=== PATIENT | female | born 1945 | race Caucasian/White ===

== ENCOUNTER 2018-03-06 15:17 | Outpatient (CLI) | payer MEDICARE, SELFPAY ==
--- NOTE | 2018-03-06 13:36 | DI.RAD_ITS ---
SYMPTOMS/DIAGNOSIS: ACUTE LOW BACK PAIN, M54.5 LUMBOSACRAL SPINE: A mild levorotoscoliosis is demonstrated. The vertebral bodies are intact. Disc narrowing is identified at T 10 - 11, T 11 - 12, T 12 - L 1, L 1 - 2 and L 5 where a narrowed vacuum disc is evident. There is a minimal anterior listhesis of L 4 on L 5. Severe degenerative facet joint changes are noted. There is no evidence of spondylosis or spondylolisthesis. The pedicle, spinous and transverse processes as visualized appear intact. The sacrum and sacroiliac joints are unremarkable. SUMMARY: Findings consistent with degenerative disc disease and DJD. There is no evidence of a fracture. Incidental note is made of a right hip prosthesis in good position.
== END 2018-03-06 15:37 ==
PROVIDERS: PCP Neuromusculoskeletal Medicine & OMM; Visit Provider Neuromusculoskeletal Medicine & OMM
DX: M54.5 Low back pain (principal); M51.35 Other intervertebral disc degeneration, thoracolumbar region; M47.815 Spondylosis without myelopathy or radiculopathy, thoracolumbar region
CPT/HCPCS: 72110

== ENCOUNTER 2018-06-05 01:19 | Outpatient (CLI) | payer MEDICARE, SELFPAY ==
--- NOTE | 2018-06-05 13:20 | DI.RAD_ITS ---
SYMPTOM/DIAGNOSIS: ASYMPTOMATIC MENOPAUSAL STATE Z78.0, SCREENING FOR OSTEOPOROSIS Z213.820 DEXA SCAN: A 06/05/2018 Dexa scan is duly recorded according to the usual protocol. For the left forearm a T-score of -2.4 and a Z-score of -0.1 are consistent with osteoporosis and a high fracture risk. The values today represent no change in bony mineralization when compared with te prior study of 09/22/2015. For the left hip a T-score of -2.5 and a Z-score of -0.8 are consistent with osteoporosis and a high fracture risk. These values represent a -8.1% decrease in mineralization when compared with the previous study of 09/22/2015. For the lumbar spine a t-score of -0.4 and a Z-score of 9 +1 are within the normal range. These values represent a -4.6% interval decrease in mineralization when compared with the 09/22/2015 exam. The scanogram was reviewed and reveals degenerative changes and is otherwise unremarkable.
== END 2018-06-05 01:39 ==
PROVIDERS: PCP Neuromusculoskeletal Medicine & OMM; Visit Provider Neuromusculoskeletal Medicine & OMM
DX: M81.0 Age-related osteoporosis without current pathological fracture (principal); Z78.0 Asymptomatic menopausal state
CPT/HCPCS: 77080

== ENCOUNTER 2018-10-17 11:33 | Outpatient (CLI) | payer MEDICARE, SELFPAY ==
[2018-10-17 13:21] LABS: ALT 31 U/L (12-78); AST 28 U/L (15-37); Albumin 3.6 g/dL (3.4-5.0); Alkaline Phosphatase 104 U/L (46-116); Anion Gap 6.4 mmol/L (3-11); BUN 15 mg/dL (7-18); Bilirubin, Total 0.4 mg/dL (0.2-1.0); CO2 29.6 mmol/L (21.0-32.0); CREATININE 0.84 mg/dL (0.55-1.02); Calcium 8.6 mg/dL (8.5-10.1); Chloride 107 mmol/L (98-107); Cholesterol 145 mg/dL (50-200); Glucose 86 mg/dL (70-100); HDL Cholesterol 44 mg/dL (40-60); LDL CHOLESTEROL 76 mg/dL (<100); Potassium 4.4 mmol/L (3.5-5.1); Sodium 143 mmol/L (136-145); Total Protein 6.8 g/dL (6.4-8.2); Triglyceride 104 mg/dL (30-150)
== END 2018-10-17 11:53 ==
PROVIDERS: PCP Neuromusculoskeletal Medicine & OMM; Visit Provider Neuromusculoskeletal Medicine & OMM
DX: E78.5 Hyperlipidemia, unspecified (principal)
CPT/HCPCS: 36415; 80053; 80061; 83721

== ENCOUNTER 2018-10-27 10:38 | Emergency (ER) | payer MEDICARE, SELFPAY ==
[2018-10-27 10:44] VITALS: BP 124/67; PULSE 82; RESP 16; TEMP 36.5; O2SAT 96
--- NOTE | 2018-10-27 11:08 | DI.RAD_ITS ---
SYMPTOMS/DIAGNOSIS: PAIN TO PROXIMAL INTERPHALANGEAL JOINT AND DISTAL INTERPHALANGEAL JOINT S/P TRAUMA LEFT RING FINGER: There is soft tissue swelling around the proximal interphalangeal joint. No fracture or foreign body is identified. IMPRESSION: Soft tissue swelling.
[2018-10-27] MEDS: Acetaminophen 325 MG TAB 650 MG PO (11:10)
--- NOTE | 2018-10-27 12:10 | ED.GENADUL_ITS ---
Discharge Plan Disposition Patient Disposition: HOME Discharge Details Chief Complaint: Orthopedic Primary Care Provider: Jerrod Aly ED Provider: Marcelino Jerez Home Meds and New Rx's Prescriptions: Continued multivitamin [Daily Multi-Vitamin] 1 EACH tablet 1 tab PO DAILY RF: 0 fluoxetine 40 MG capsule 40 mg PO DAILY RF: 0 buspirone 5 MG tablet 5 mg PO BID RF: 0 bupropion HCl [Wellbutrin SR] 100 MG tablet extended release 12 hr 150 mg PO DAILY RF: 0 calcium carbonate-vitamin D3 [Calcium 500 + D] 1 EACH tablet 1 ea PO DAILY RF: 0 aspirin [Aspir-Low] 81 MG tablet,delayed release (DR/EC) 81 mg PO DAILY RF: 0 simvastatin 20 MG tablet 20 mg PO QPM RF: 0 albuterol sulfate [Proventil HFA] 200 PUFF HFA aerosol inhaler 2 gm Inhalation DIRECTED RF: 0 valacyclovir 1,000 MG tablet 1,000 mg PO TID Qty: 21 RF: 0 Discharge Data Discharge Date/Time-TO BE ENTERED AT DEPARTURE: 10/27/18 12:36 Medical Decision Making Hyperextension of left ring finger 1 day ago with significant swelling and ecchymosis. Patient has ring intact but causing significant swelling to the proximal phalanx. Patient agreed for ring removal and Dr. Adame's Montez assisted in removing ring with ring cutter. Finger was assessed and sensation was intact, patient did have flexion and extension of the digit with some difficulty fully flexing the digit but tendons do seem intact. Given significant swelling and ecchymosis plan to do radiological imaging to rule out acute fracture. Pending results patient given acetaminophen After review of imaging that shows no signs of acute fracture but pending radiologist interpretation patient was placed in a foam metal splint and instructed to use this over the next week and advance activity as tolerated by pain and if not improving to call orthopedist. After discussion of diagnosis and plan of care patient has no further needs, questions, or concerns and states clear understanding to return to the emergency department for any worsening symptoms. HPI General Mode of arrival: ambulatory . Date/Time Provider Initiated Documentation: 10/27/18 10:52 . Limitations to Documentation: no limitations . Information obtained by: patient and RN notes reviewed . History of Present Illness 73 year old F presents to the emergency department with the chief complaint of Left ring finger injury, described as moderate, with intensity rated at 8. Quality is described as aching, and is localized to the left and upper extremity. Patient started experiencing this day(s) (1) and it has been constant. Movement worsens symptoms . Patient notes no other symptoms.. Patient did receive the following treatments prior to arrival, none Related Data Home Medications Medication Instructions Recorded Confirmed bupropion HCl [Wellbutrin SR] 150 mg PO DAILY 01/08/13 10/27/18 buspirone 5 mg PO BID 01/08/13 10/27/18 calcium carbonate-vitamin D3 1 ea PO DAILY 01/08/13 10/27/18 [Calcium 500 + D] fluoxetine 40 mg PO DAILY 01/08/13 10/27/18 multivitamin [Daily Multi-Vitamin] 1 tab PO DAILY 01/08/13 10/27/18 aspirin [Aspir-Low] 81 mg PO DAILY 11/11/14 10/27/18 simvastatin 20 mg PO QPM 11/11/14 10/27/18 albuterol sulfate [Proventil HFA] 2 gm INHALATION DIRECTED 05/27/16 10/27/18 valacyclovir 1,000 mg PO TID #21 tablet 05/27/16 10/27/18 Previous Rx's Medication Instructions Recorded valacyclovir 1,000 mg PO TID #21 tablet 05/27/16 Allergies Allergy/AdvReac Type Severity Reaction Status Date / Time Sulfa (Sulfonamide AdvReac Intermediate Dizziness/L Unverified 10/27/18 10:47 Antibiotics) ightheade erythromycin base AdvReac Mild dizziness Unverified 10/27/18 10:47 General Stated Complaint: Orthopedic MAI: 4 Review of Systems Musculoskeletal Reports as per HPI, Denies numbness and Denies tingling Integumentary/Breasts Denies rash, Denies sores and Denies wounds Neurologic Denies numbness and Denies tingling PFSH Surgical History Appendectomy section Social History Smoking/Tobacco Use Status: Former Tobacco Use Drug use: Never Do you feel safe in your relationship?: Yes Exam Const General: cooperative and no acute distress Orientation: alert, awake and oriented x3 Resp Effort & Inspection: normal respiratory effort and able to speak in complete sentences Cardio Rate: regular rate Rhythm: regular rhythm Extrem Left upper extremity: hand Details: abnormal to inspection, neuromotor exam normal, neurosensory exam normal, tendon exam normal, vascular exam Details: radial pulse present and normal capillary refill, swelling Location: of the 4th digit Location: at the proximal phalanx and at the middle phalanx and ecchymosis Location: of the 4th digit; no abrasions and no crepitus Course Vital Signs Temperature 36.5 C 10/27/18 10:44 Pulse 82 10/27/18 10:44 Respiratory Rate 16 10/27/18 10:44 Blood Pressure 124/67 10/27/18 10:44 Pulse Oximetry 96 10/27/18 10:44 Temperature 36.5 C 10/27/18 10:44 Temperature Source Skin 10/27/18 10:44 Pulse 82 10/27/18 10:44 Respiratory Rate 16 10/27/18 10:44 Respiratory Effort Non-Labored 10/27/18 10:44 Blood Pressure 124/67 10/27/18 10:44 Blood Pressure Position Sitting 10/27/18 10:44 Pulse Oximetry 96 10/27/18 10:44 Oxygen Delivery Method Room Air 10/27/18 10:44 Oxygen Flow Rate 0 10/27/18 10:44 Pain Level 8 10/27/18 11:10
[2018-10-27 12:18] VITALS: BP 124/67; PULSE 82; RESP 16; TEMP 36.5; O2SAT 96
== END 2018-10-27 12:36 | disposition home or self-care (01) ==
PROVIDERS: Emergency Provider Nurse Practitioner Family; PCP Neuromusculoskeletal Medicine & OMM
DX: S63.635A Sprain of interphalangeal joint of left ring finger, initial encounter (principal); W22.8XXA Striking against or struck by other objects, initial encounter
CPT/HCPCS: 99283; 73140; 99282

== ENCOUNTER 2018-11-27 12:15 | Emergency (ER) | payer MEDICARE, SELFPAY ==
[2018-11-27 12:18] VITALS: BP 150/84; PULSE 77; RESP 16; TEMP 36.5; O2SAT 97
--- NOTE | 2018-11-27 12:18 | W.ED.GENAD ---
Discharge Plan Disposition Patient Disposition: HOME Condition: Fair Discharge Details Chief Complaint: FacialProb Clinical Impression: Facial abrasion, Contusion of face Primary Care Provider: Jerrod Aly ED Provider: Nhung Santos Home Meds and New Rx's Prescriptions: Continued fluoxetine 40 MG capsule 40 mg PO DAILY RF: 0 buspirone 5 MG tablet 5 mg PO BID RF: 0 bupropion HCl [Wellbutrin SR] 100 MG tablet extended release 12 hr 150 mg PO DAILY RF: 0 aspirin [Aspir-Low] 81 MG tablet,delayed release (DR/EC) 81 mg PO DAILY RF: 0 simvastatin 20 MG tablet 20 mg PO QPM RF: 0 albuterol sulfate [Proventil HFA] 200 PUFF HFA aerosol inhaler 2 gm Inhalation DIRECTED RF: 0 Discharge Instructions Instructions: Head Injury (ED), Abrasion (ED) Additional Instructions: Encourage hydration. Keep wounds clean and dry. May wash as you typically do with running water and soap. Monitor for signs of infection including redness, warmth, drainage, increased pain, fever/chills. If these or other new/worsening symptoms arise please seek care urgently once again. Imaging was reassuring today with no evidence of fracture. Please follow-up with primary care reevaluation next week. Referrals: Jerrod Aly [Primary Care Provider] - Medical Decision Making Patient is a 73 year old female presenting today for evaluation after trauma. States that yesterday she tripped over her dog leash and fell forward striking her face on dirt road. Also suffered abrasions to bilateral knees and left wrist. She denies LOC, no FOREMAN. Denies neck pain, SOB, N/V/D, no incontinence or change in bowel/bladder habits. Primary concern is pain in her nose. Last tetanus was 3 years ago. On exam, she has abrasion down nose. Patient has deviated septum but she reports that this is typical for her and unchanged. She has no current epistaxis. No nasal polyps. No palpable skull fractures. No wilkerson sign. Patient over the spine, no palpable step-off. Patient has good range of motion. No pain with a few chest wall compression. Abdomen is benign. She is abrasions to bilateral knees and small abrasion to the left wrist. All of which appear to be healing well without signs of infection. Small scabbed over since yesterday. Plan to obtain imaging of the patient's head and face to evaluate for any possible fracture. After exam, patient reported that she had some discomfort in the chest yesterday after the fall states that she landed on her hands under her chest. However, she does not have any discomfort with a pair of lateral chest wall compression. Will screen with a chest X CT of the patient's head and face as well as the chest x-ray reviewed by radiologist. They report that the imaging is negative. Discussed these findings with the patient. Advised contusions and abrasions. Encourage hydration. We discussed signs symptoms of infection of the abrasions and when she should seek care urgently once again. Also discussed symptoms of head injury. Advise follow-up with primary care next week. All of her questions and concerns were addressed, they are in agreement with this plan. HPI General Mode of arrival: ambulatory. Date/Time Provider Initiated Documentation: 11/27/18 12:17. Limitations to Documentation: no limitations. Information obtained by: patient and RN notes reviewed. History of Present Illness 73 year old F presents to the emergency department with the chief complaint of facial trauma, described as moderate, with intensity rated at 7. Quality is described as aching, and is localized to the face. Patient reports no radiation. Patient started experiencing this day(s) (1) and it has been constant. No relieving factors improve symptom(s), No exacerbating factors reported . Patient notes no other symptoms.. Patient did receive the following treatments prior to arrival, none Related Data Home Medications Medication Instructions Recorded Confirmed bupropion HCl [Wellbutrin SR] 150 mg PO DAILY 01/08/13 11/27/18 buspirone 5 mg PO BID 01/08/13 11/27/18 fluoxetine 40 mg PO DAILY 01/08/13 11/27/18 aspirin [Aspir-Low] 81 mg PO DAILY 11/11/14 11/27/18 simvastatin 20 mg PO QPM 11/11/14 11/27/18 albuterol sulfate [Proventil HFA] 2 gm INHALATION DIRECTED 05/27/16 11/27/18 Allergies Allergy/AdvReac Type Severity Reaction Status Date / Time Sulfa (Sulfonamide AdvReac Intermediate Dizziness/L Unverified 11/27/18 12:22 Antibiotics) ightheade erythromycin base AdvReac Mild dizziness Unverified 11/27/18 12:22 General MAI: 4 Review of Systems Constitutional Reports as per HPI, Denies chills, Denies fatigue, Denies fever(s), Denies headache(s) and Denies weakness Eyes Reports as per HPI, Denies blurry vision, Denies change in vision and Denies loss of vision ENT Denies abnormal hearing, Denies vertigo, Denies dizziness, Denies otalgia, Denies headache(s), Denies lip swelling, Denies nasal obstruction, Reports nasal trauma, Denies neck pain and Denies throat swelling Cardiovascular Reports as per HPI, Denies chest pain and Denies dyspnea Respiratory Reports as per HPI, Denies cough, Denies pain on inspiration, Denies pain with cough and Denies dyspnea Gastrointestinal Reports as per HPI, Denies abdominal pain, Denies nausea and Denies vomiting Genitourinary Reports as per HPI and Denies urinary incontinence Musculoskeletal Reports as per HPI and Denies neck pain Integumentary/Breasts Reports as per HPI and Reports wounds Neurologic Reports as per HPI, Denies abnormal hearing, Denies abnormal movements, Denies abnormal speech, Denies vertigo, Denies dizziness, Denies headache(s), Denies lack of coordination, Denies focal weakness, Denies loss of vision, Denies seizure-like activity, Denies paresthesias and Denies weakness Endocrine Denies fatigue Allergic/Immunologic Denies lip swelling and Denies throat swelling [facility] Surgical History Appendectomy section Social History Smoking/Tobacco Use Status: Former Tobacco Use Alcohol Intake: former Drug use: Never Do you feel safe in your relationship?: Yes Exam Const General: cooperative, healthy appearing, comfortable, no acute distress, well developed and well groomed Nutritional Appearance: average body habitus and well nourished Orientation: alert, awake and oriented x3 HENMT Head: normal to inspection, no palpable skull fracture, normocephalic and atraumatic Ears: hearing grossly normal bilaterally, external ears normal and TM's normal bilaterally General nose exam: no nasal polyps, nasal mucous membranes and turbinates normal, abnormal septum (deviated septum, patient reports this is known and chronic), no nasal discharge, no epistaxis, external nose abnormal nasal abrasion, no foreign body in nares and no nasal polyps Face and sinus: face symmetric, no abrasions, no crepitus, no ecchymosis, no erythema, no edema, no fluctuance, no lacerations, no maxillary instability and tenderness bilaterally periorbital, mandible, maxilla and chin (ecchymosis over chin) Mouth: oral mucosae normal, lip normal and tongue normal Throat: posterior oropharynx normal Eyes General: appearance normal, both eyes and all related structures Visual Mcmanus: normal visual mcmanus by confrontation Alignment and Position: alignment normal Periorbital: periorbital findings normal Eyelids: eyelids normal Conjunctivae: conjunctivae normal Pupils: PERRL EOM: EOM intact bilaterally Neck Neck: normal visual inspection, full ROM, no lymphadenopathy, no meningeal signs, trachea midline and supple Chest Chest: normal inspection of the chest, normal palpation of entire chest wall, no crepitus and no localized rib tenderness Resp Effort & Inspection: normal respiratory effort, able to speak in complete sentences and no respiratory distress Auscultation: clear to auscultation bilaterally, no rales, no rhonchi and no wheezes Cardio Rate: regular rate Rhythm: regular rhythm Heart Sounds: S1 normal and S2 normal GI Inspection: normal to inspection, no abdominal wall ecchymosis, no edema and non-distended Palpation: soft, no hepatosplenomegaly, not firm, no guarding, no pulsatile masses, not rigid and nontender Auscultation: normal bowel sounds Back/Spine/Pelvis Back: no CVA tenderness Cervical Spine: normal cervical lordosis and cervical ROM normal Thoracic/Lumbar Spine: thoracic and lumbar spine normal to inspection, thoraco-lumbar ROM normal, No thoraco-lumbar ROM limited, No thoraco-lumbar spasm and No thoracic spinal tenderness Pelvis: no pain with anterior-posterior compression and no pain with lateral compression Skin Trauma: abrasion (abrasion to nose, appears to be healing well) Neuro General: alert, awake, oriented x3, gait normal, tone normal and moves all extremities Cranial Nerves: CN's II-XI intact bilaterally Cognition: normal cognition Speech: speech normal Gait: normal gait Motor: muscle tone normal throughout and strength 5/5 throughout Sensory Exam: no sensory deficits noted (no saddle paresthesias) Extrem General: normal to inspection, full ROM, normal capillary refill, no pedal edema and no calf tenderness Psych Appearance: grossly normal and well kempt Mental Status: mental status grossly normal Speech and Movement: speech and movement normal
--- NOTE | 2018-11-27 12:37 | DI.RAD_ITS ---
SYMPTOM/DIAGNOSIS: TRAUMA YESTERDAY, PAIN AFTER FALL PA AND LATERAL CHEST: The heart is normal in size. The lungs are clear. The mediastinal structures and pleura appear intact. CONCLUSION: Normal chest.
--- NOTE | 2018-11-27 12:37 | DI.CT_ITS ---
SYMPTOM/DIAGNOSIS: TRAUMA YESTERDAY, PAIN IN JAW AND NOSE NONCONTRAST HEAD CT: Atrophic changes consistent with age are demonstrated. There is no evidence of an intra/extra-axial hemorrhage. Small regions of diminished absorption involving the frontoparietal white matter bilaterally are consistent with small vessel disease. The ventricles are normal. There is no evidence of a skull fracture. The paranasal sinuses are intact. There is no evidence of a mastoid effusion. No soft tissue abnormality is identified. SUMMARY: There is no evidence of an acute intracranial process. FACIAL CT: The noncontrast enhanced examination reveals no evidence of a facial bone fracture. No orbital fracture is identified. Aside from a small retention cyst in the right frontal sinus, the paranasal sinuses are intact. SUMMARY: No facial bone fracture is demonstrated.
--- NOTE | 2018-11-27 13:03 | ED.GENADUL_ITS ---
Discharge Plan Disposition Patient Disposition: HOME Condition: Fair Discharge Details Chief Complaint: FacialProb Clinical Impression: Facial abrasion, Contusion of face Primary Care Provider: Jerrod Aly ED Provider: Nhung Santos Home Meds and New Rx's Prescriptions: Continued fluoxetine 40 MG capsule 40 mg PO DAILY RF: 0 buspirone 5 MG tablet 5 mg PO BID RF: 0 bupropion HCl [Wellbutrin SR] 100 MG tablet extended release 12 hr 150 mg PO DAILY RF: 0 aspirin [Aspir-Low] 81 MG tablet,delayed release (DR/EC) 81 mg PO DAILY RF: 0 simvastatin 20 MG tablet 20 mg PO QPM RF: 0 albuterol sulfate [Proventil HFA] 200 PUFF HFA aerosol inhaler 2 gm Inhalation DIRECTED RF: 0 Discharge Instructions Instructions: Head Injury (ED), Abrasion (ED) Additional Instructions: Encourage hydration. Keep wounds clean and dry. May wash as you typically do with running water and soap. Monitor for signs of infection including redness, warmth, drainage, increased pain, fever/chills. If these or other new/worsening symptoms arise please seek care urgently once again. Imaging was reassuring today with no evidence of fracture. Please follow-up with primary care enrrique juarez next week. Referrals: Jerrod Aly [Primary Care Provider] - Medical Decision Making Patient is a 73 year old female presenting today for evaluation after trauma. States that yesterday she tripped over her dog leash and fell forward striking her face on dirt road. Also suffered abrasions to bilateral knees and left wrist. She denies LOC, no FOREMAN. Denies neck pain, SOB, N/V/D, no incontinence or change in bowel/bladder habits. Primary concern is pain in her nose. Last tetanus was 3 years ago. On exam, she has abrasion down nose. Patient has deviated septum but she reports that this is typical for her and unchanged. She has no current epistaxis. No nasal polyps. No palpable skull fractures. No wilkerson sign. Patient over the spine, no palpable step-off. Patient has good range of motion. No pain with a few chest wall compression. Abdomen is benign. She is abrasions to bilateral knees and small abrasion to the left wrist. All of which appear to be healing well without signs of infection. Small scabbed over since yesterday. Plan to obtain imaging of the patient's head and face to evaluate for any possible fracture. After exam, patient reported that she had some discomfort in the chest yesterday after the fall states that she landed on her hands under her chest. However, she does not have any discomfort with a pair of lateral chest wall compression. Will screen with a chest X CT of the patient's head and face as well as the chest x-ray reviewed by radiologist. They report that the imaging is negative. Discussed these findings with the patient. Advised contusions and abrasions. Encourage hydration. We discussed signs symptoms of infection of the abrasions and when she should seek care urgently once again. Also discussed symptoms of head injury. Advise follow-up with primary care next week. All of her questions and concerns were addressed, they are in agreement with this plan. HPI General Mode of arrival: ambulatory . Date/Time Provider Initiated Documentation: 11/27/18 12:17 . Limitations to Documentation: no limitations . Information obtained by: patient and RN notes reviewed . History of Present Illness 73 year old F presents to the emergency department with the chief complaint of facial trauma, described as moderate, with intensity rated at 7. Quality is described as aching, and is localized to the face. Patient reports no radiation. Patient started experiencing this day(s) (1) and it has been constant. No relieving factors improve symptom(s), No exacerbating factors reported . Patient notes no other symptoms.. Patient did receive the following treatments prior to arrival, none Related Data Home Medications Medication Instructions Recorded Confirmed bupropion HCl [Wellbutrin SR] 150 mg PO DAILY 01/08/13 11/27/18 buspirone 5 mg PO BID 01/08/13 11/27/18 fluoxetine 40 mg PO DAILY 01/08/13 11/27/18 aspirin [Aspir-Low] 81 mg PO DAILY 11/11/14 11/27/18 simvastatin 20 mg PO QPM 11/11/14 11/27/18 albuterol sulfate [Proventil HFA] 2 gm INHALATION DIRECTED 05/27/16 11/27/18 Allergies Allergy/AdvReac Type Severity Reaction Status Date / Time Sulfa (Sulfonamide AdvReac Intermediate Dizziness/L Unverified 11/27/18 12:22 Antibiotics) ightheade erythromycin base AdvReac Mild dizziness Unverified 06/13/19 12:22 General MAI: 4 Review of Systems Constitutional Reports as per HPI, Denies chills, Denies fatigue, Denies fever(s), Denies headache(s) and Denies weakness Eyes Reports as per HPI, Denies blurry vision, Denies change in vision and Denies loss of vision ENT Denies abnormal hearing, Denies vertigo, Denies dizziness, Denies otalgia, Denies headache(s), Denies lip swelling, Denies nasal obstruction, Reports nasal trauma, Denies neck pain and Denies throat swelling Cardiovascular Reports as per HPI, Denies chest pain and Denies dyspnea Respiratory Reports as per HPI, Denies cough, Denies pain on inspiration, Denies pain with cough and Denies dyspnea Gastrointestinal Reports as per HPI, Denies abdominal pain, Denies nausea and Denies vomiting Genitourinary Reports as per HPI and Denies urinary incontinence Musculoskeletal Reports as per HPI and Denies neck pain Integumentary/Breasts Reports as per HPI and Reports wounds Neurologic Reports as per HPI, Denies abnormal hearing, Denies abnormal movements, Denies abnormal speech, Denies vertigo, Denies dizziness, Denies headache(s), Denies lack of coordination, Denies focal weakness, Denies loss of vision, Denies seizure-like activity, Denies paresthesias and Denies weakness Endocrine Denies fatigue Allergic/Immunologic Denies lip swelling and Denies throat swelling [facility] Surgical History Appendectomy section Social History Smoking/Tobacco Use Status: Former Tobacco Use Alcohol Intake: former Drug use: Never Do you feel safe in your relationship?: Yes Exam Const General: cooperative, healthy appearing, comfortable, no acute distress, well developed and well groomed Nutritional Appearance: average body habitus and well nourished Orientation: alert, awake and oriented x3 HENMT Head: normal to inspection, no palpable skull fracture, normocephalic and atraumatic Ears: hearing grossly normal bilaterally, external ears normal and TM's normal bilaterally General nose exam: no nasal polyps, nasal mucous membranes and turbinates normal, abnormal septum (deviated septum, patient reports this is known and chronic), no nasal discharge, no epistaxis, external nose abnormal nasal abrasion, no foreign body in nares and no nasal polyps Face and sinus: face symmetric, no abrasions, no crepitus, no ecchymosis, no erythema, no edema, no fluctuance, no lacerations, no maxillary instability and tenderness bilaterally periorbital, mandible, maxilla and chin (ecchymosis over chin) Mouth: oral mucosae normal, lip normal and tongue normal Throat: posterior oropharynx normal Eyes General: appearance normal, both eyes and all related structures Visual Mcmanus: normal visual mcmanus by confrontation Alignment and Position: alignment normal Periorbital: periorbital findings normal Eyelids: eyelids normal Conjunctivae: conjunctivae normal Pupils: PERRL EOM: EOM intact bilaterally Neck Neck: normal visual inspection, full ROM, no lymphadenopathy, no meningeal signs, trachea midline and supple Chest Chest: normal inspection of the chest, normal palpation of entire chest wall, no crepitus and no localized rib tenderness Resp Effort & Inspection: normal respiratory effort, able to speak in complete sentences and no respiratory distress Auscultation: clear to auscultation bilaterally, no rales, no rhonchi and no wheezes Cardio Rate: regular rate Rhythm: regular rhythm Heart Sounds: S1 normal and S2 normal GI Inspection: normal to inspection, no abdominal wall ecchymosis, no edema and non-distended Palpation: soft, no hepatosplenomegaly, not firm, no guarding, no pulsatile masses, not rigid and nontender Auscultation: normal bowel sounds Back/Spine/Pelvis Back: no CVA tenderness Cervical Spine: normal cervical lordosis and cervical ROM normal Thoracic/Lumbar Spine: thoracic and lumbar spine normal to inspection, thoraco- lumbar ROM normal, No thoraco-lumbar ROM limited, No thoraco-lumbar spasm and No thoracic spinal tenderness Pelvis: no pain with anterior-posterior compression and no pain with lateral compression Skin Trauma: abrasion (abrasion to nose, appears to be healing well) Neuro General: alert, awake, oriented x3, gait normal, tone normal and moves all extremities Cranial Nerves: CN's II-XI intact bilaterally Cognition: normal cognition Speech: speech normal Gait: normal gait Motor: muscle tone normal throughout and strength 5/5 throughout Sensory Exam: no sensory deficits noted (no saddle paresthesias) Extrem General: normal to inspection, full ROM, normal capillary refill, no pedal edema and no calf tenderness Psych Appearance: grossly normal and well kempt Mental Status: mental status grossly normal Speech and Movement: speech and movement normal
== END 2018-11-27 13:33 | disposition home or self-care (01) ==
PROVIDERS: Emergency Provider Physician Assistant; PCP Neuromusculoskeletal Medicine & OMM
DX: S00.81XA Abrasion of other part of head, initial encounter (principal); S00.83XA Contusion of other part of head, initial encounter; S60.812A Abrasion of left wrist, initial encounter; S80.212A Abrasion, left knee, initial encounter; S80.211A Abrasion, right knee, initial encounter; R07.9 Chest pain, unspecified; Z79.82 Long term (current) use of aspirin; W18.31XA Fall on same level due to stepping on an object, initial encounter; W54.8XXA Other contact with dog, initial encounter
CPT/HCPCS: 99284; 70450; 70486; 71046

== ENCOUNTER → 2019-11-12 10:34 | Outpatient (BNVA) | payer MEDICARE, SELFPAY | PROVIDERS: PCP Neuromusculoskeletal Medicine & OMM; Referring Provider Neuromusculoskeletal Medicine & OMM; Visit Provider Student in an Organized Health Care Education/Training Program | DX: G56.01 Carpal tunnel syndrome, right upper limb (principal); G56.02 Carpal tunnel syndrome, left upper limb; J44.9 Chronic obstructive pulmonary disease, unspecified; Z87.891 Personal history of nicotine dependence | CPT/HCPCS: 99203; 99214 ==

== ENCOUNTER 2019-11-30 07:55 | Outpatient (CLI) | payer MEDICARE, SELFPAY ==
[2019-12-01 16:14] LABS: COVID-19 RT-PCR UVMMC Result Negative (Negative)
== END 2019-11-30 08:15 ==
PROVIDERS: PCP Neuromusculoskeletal Medicine & OMM; Visit Provider Student in an Organized Health Care Education/Training Program
DX: Z11.59 Encounter for screening for other viral diseases (principal); Z01.818 Encounter for other preprocedural examination
CPT/HCPCS: U0003

== ENCOUNTER 2019-12-02 06:42 | Day surgery (SDC) | payer MEDICARE, SELFPAY ==
[2019-12-02 06:54] VITALS: BP 116/86; PULSE 74; RESP 20; TEMP 36.4; O2SAT 98
[2019-12-02] MEDS: Lactated Ringers 1,000 ML 80 ML IV (07:15)
[2019-12-02] MEDS: ceFAZolin 2 GM/50 ML BAG IVPB (07:29)
[2019-12-02] MEDS: Sodium Bicarbonate 50 MEQ/50 ML VIAL (07:41)
[2019-12-02 08:25] VITALS: BP 124/80; PULSE 71; RESP 20; TEMP 36.7; O2SAT 96
--- NOTE | 2019-12-02 10:09 | PDOC.DSDIS_ITS ---
Discharge Plan Disposition Patient Disposition: HOME Condition: Good Discharge Details Reason For Visit: Right Carpal Tunnel Syndrome Attending Provider: Leo Alex Primary Care Provider: Jerrod Aly Olmitz Meds and New Rx's Prescriptions: No Action fluoxetine 40 MG capsule 40 mg PO DAILY RF: 0 buspirone 5 MG tablet 30 mg PO BID RF: 0 bupropion HCl [Wellbutrin SR] 100 MG tablet extended release 12 hr 300 mg PO DAILY RF: 0 aspirin [Aspir-Low] 81 MG tablet,delayed release (DR/EC) 81 mg PO DAILY RF: 0 simvastatin 20 MG tablet 20 mg PO QPM RF: 0 acetaminophen [Tylenol Extra Strength] 500 mg Tablet 1,000 mg PO Q6H PRNRF: 0 albuterol sulfate [Proventil HFA] 200 PUFF HFA aerosol inhaler 2 gm Inhalation DIRECTED RF: 0 Discharge Instructions Stand Alone Forms: Abi Cassidy Tunnel Release, DSU Post op Instructions, Ene Hightower (DSU) Referrals: Leo Alex MD [ [facility] STAFF PHYSICIAN] - Activity:: Elevate Remove Dressings/Wound Care:: 72 hours Shower/Bathe:: 72 hours Diet:: As Tolerated Discharge Orders Discharge Orders: Discharge Order (Routine); Ordered 12/02/19 Ordered By: Leo Alex Discharge Data Discharge Date/Time-TO BE ENTERED AT DEPARTURE: 12/02/19 08:56 DS: Diagnosis Discharge Diagnosis (1) Carpal tunnel syndrome, right: Status: Acute
--- NOTE | 2019-12-02 10:10 | W.PM.OP ---
Date of service: 12/02/19 Time of Service: 07:45 Operative Note Operative Note DATE OF PROCEDURE: 12/02/19 PRE-OP DIAGNOSIS: Right Carpal Tunnel Syndrome POST-OP DIAGNOSIS: same PROCEDURE: Right Endoscopic Carpal Tunnel Release SURGEON: Leo Alex ANESTHESIA: GETGeorgina ESTIMATED BLOOD LOSS: 0 PATHOLOGY: none sent TOURNIQUET TIME: 3 COMPLICATIONS: None Patient was transported to: same day Patient's condition: stable Indications: I have seen Zoë in clinic for symptoms of carpal tunnel syndrome. The numbness, tingling, and pain limited function. Clinical exam findings with nerve conduction tests confirmed the diagnosis of carpal tunnel syndrome. Nonoperative measures such as bracing, time, activity modifications had been tried but disability and pain persisted. I discussed carpal tunnel release with the patient. I reviewed the risks of the procedure to include, but not limited to, bleeding, infection, pain, stiffness, incomplete release, damage to nerves or vessels, persistent numbness, recurrence. Despite these risks, the patient elected to proceed. Findings: There was tightened carpal tunnel. This was dilated and released successfully with the endoscope with increased space within the tunnel. The antebrachial fascia was released proximally freeing the median nerve at the wrist. Procedure Description: Zoë was greeted in the preoperative holding area where the correct side was identified and marked. The consent was reviewed with the patient and signed. The history and physical was updated. All questions were answered. Zoë was taken back to the operating room. The patient was placed into the supine position on the operating room table with the right arm on an arm board. A nonsterile tourniquet was placed high onto the arm. All bony prominences were well padded. Prophylactic antibiotics in the form of [Cefazolin] were administered. The right arm was then prepped with Chloraprep and draped in a standard fashion with stockinette and extremity drape. A timeout to confirm correct identity, side and site, procedure, allergies, anesthesia, and medical concerns was performed. The surgical site was marked in the volar wrist creases in line with the radial border of the fourth ray. This area was anesthetized with approximately 6cc of 1% Lidocaine. The limb was then exsanguinated with an Esmarch. The skin was incised with a 15 blade, approximately 1cm. The skin only was cut and the deeper tissue was dissected bluntly with a tenotomy scissor, avoiding passing nerve and venous structures. The fascia was penetrated and opened bluntly. A two-prong skin hook was placed under this proximal fascial edge. A series of hamate finders were used to identify and dilate the carpal tunnel. Synovial elevator was used to free synovial attachments to the underside of the transverse carpal ligament. My thumb was kept in the palm to donald the distal extent of the carpal tunnel and correctly position the hand. The [employer]aire endoscope was inserted without difficulty and without resistance. Excellent visualization showed horizontally running fibers of the transverse carpal ligament (TCL). The distal extent of the TCL was visualized and the end of the scope palpated with the thumb. The blade was elevated and withdrawn from distal to proximal. The TCL was split into two flaps. The endoscope was reinserted to confirm complete release and any remnant ligament was incised. The scope was withdrawn and the proximal aspect of the carpal tunnel was grossly inspected and appeared release with the median nerve visible. The antebrachial fascia at the level of the wrist was then freed from the overlying skin and then the underlying median nerve with blunt dissection. This was transected longitudinally for about 3cm proximal to the wrist incision. The wound was then irrigated with easy flow of irrigant distally and proximally. The incision was closed with a single 4-0 Nylon suture. The wound was dressed with Xeroform, Gauze, Kerlix and John. The tourniquet was deflated with the initial dressing and held with some pressure. Blood flow returned easily to all digits with capillary refill less than 2 seconds. The patient tolerated the procedure well and was returned to the Same Day Surgery area in a stable condition suffering no known complication.
== END 2019-12-02 08:56 | disposition home or self-care (01) ==
LOC: SUR 06:42
PROVIDERS: PCP Neuromusculoskeletal Medicine & OMM; Visit Provider Student in an Organized Health Care Education/Training Program
PROC: 01N54ZZ Release Median Nerve, Percutaneous Endoscopic Approach (ICD-10-PCS; CPT 29848; principal; 2019-12-02 07:30)
DX: G56.01 Carpal tunnel syndrome, right upper limb (principal)
CPT/HCPCS: 29848; J0690; J2001; J2704; L3650

== ENCOUNTER → 2019-12-10 11:34 | Outpatient (BNVA) | payer MEDICARE, SELFPAY | PROVIDERS: PCP Neuromusculoskeletal Medicine & OMM; Referring Provider Neuromusculoskeletal Medicine & OMM; Visit Provider Student in an Organized Health Care Education/Training Program | DX: Z47.89 Encounter for other orthopedic aftercare (principal); G56.01 Carpal tunnel syndrome, right upper limb; J44.9 Chronic obstructive pulmonary disease, unspecified ==

== ENCOUNTER → 2020-01-21 09:59 | Outpatient (BNVA) | payer MEDICARE, SELFPAY | PROVIDERS: PCP Neuromusculoskeletal Medicine & OMM; Referring Provider Neuromusculoskeletal Medicine & OMM; Visit Provider Student in an Organized Health Care Education/Training Program | DX: Z47.89 Encounter for other orthopedic aftercare (principal) ==

== ENCOUNTER 2020-05-30 13:57 | Emergency (ER) | payer MEDICARE, SELFPAY ==
[2020-05-30 14:00] VITALS: BP 157/81; PULSE 100; RESP 18; TEMP 36.6; O2SAT 95
--- NOTE | 2020-05-30 14:24 | ED.GENADUL_ITS ---
Discharge Plan Disposition Patient Disposition: HOME Condition: Stable Discharge Details Clinical Impression: Candidal intertrigo Primary Care Provider: Jerrod Aly ED Provider: Deep Montez Home Meds and New Rx's Prescriptions: New clotrimazole 1 % cream 1 applic topical BID 14 Days Qty: 45 RF: 0 Continued ibuprofen 400 mg tablet 400 mg PO Q8H RF: 0 fluoxetine 40 MG capsule 40 mg PO DAILY RF: 0 buspirone 5 MG tablet 30 mg PO BID RF: 0 bupropion HCl [Wellbutrin SR] 100 MG tablet extended release 12 hr 300 mg PO DAILY RF: 0 aspirin [Aspir-Low] 81 MG tablet,delayed release (DR/EC) 81 mg PO DAILY RF: 0 simvastatin 20 MG tablet 20 mg PO QPM RF: 0 acetaminophen [Tylenol Extra Strength] 500 mg Tablet 1,000 mg PO Q6H PRNRF: 0 albuterol sulfate [Proventil HFA] 200 PUFF HFA aerosol inhaler 2 gm Inhalation DIRECTED RF: 0 Discharge Instructions Instructions: Skin Yeast Infection (ED) Additional Instructions: Keep skin as dry as possible. Apply antifungal cream as prescribed twice a day. Please contact your primary care physician to arrange follow-up. Return to the ER for any worsening or new concerning symptoms. Referrals: Jerrod Aly [Primary Care Provider] - Medical Decision Making 74-year-old female here with Miranda intertrigo. Plan to treat with clotrimazole 1% topical ointment twice daily x14 days and advised maintain cool dry condition as much as possible. HPI General Mode of arrival: ambulatory . Date/Time Provider Initiated Documentation: 05/30/20 13:58 . Limitations to Documentation: no limitations . Information obtained by: patient . HPI Narrative: 74-year-old female here with chief complaint of rash. Patient notes rash under her right breast that has been present for the past 3 to 4 days. Rash has worsened despite using Vaseline and aloe vera. She states rash started as an itchy area. Continues to be itchy and now red. She is a small area under her left breast as well. No history of diabetes. No other rash. Related Data Home Medications Medication Instructions Recorded Confirmed bupropion HCl [Wellbutrin SR] 300 mg PO DAILY 01/08/13 05/30/20 buspirone 30 mg PO BID 01/08/13 05/30/20 fluoxetine 40 mg PO DAILY 01/08/13 05/30/20 aspirin [Aspir-Low] 81 mg PO DAILY 11/11/14 05/30/20 simvastatin 20 mg PO QPM 11/11/14 05/30/20 albuterol sulfate [Proventil HFA] 2 gm INHALATION DIRECTED 05/27/16 05/30/20 acetaminophen [Tylenol Extra 1,000 mg PO Q6H PRN 12/02/19 05/30/20 Strength] ibuprofen 400 mg tablet 400 mg PO Q8H 01/21/20 05/30/20 clotrimazole 1 applic TOPICAL BID 14 Days #45 g 05/30/20 Previous Rx's Medication Instructions Recorded clotrimazole 1 applic TOPICAL BID 14 Days #45 g 05/30/20 Allergies Allergy/AdvReac Type Severity Reaction Status Date / Time Sulfa (Sulfonamide AdvReac Intermediate Dizziness/L Unverified 05/30/20 14:10 Antibiotics) ightheade erythromycin base AdvReac Mild dizziness Unverified 05/30/20 14:10 General Stated Complaint: RashLesion MAI: 4 Review of Systems Constitutional Constitutional: Denies fever(s) Integumentary/Breasts Skin/Breast: Reports as per HPI [facility] Medical History Allergic rhinitis Anemia Anxiety COPD (chronic obstructive pulmonary disease) Depressive disorder Disorder of nervous system Herpes zoster Hyperlipidemia Insomnia Nicotine dependence Osteoporosis Palpitations Temporomandibular joint disorder Surgical History Appendectomy section History of carpal tunnel surgery of right wrist (12/02/19) History of right hip replacement History of total right knee replacement Hx of tonsillectomy Social History Smoking/Tobacco Use Status: Former Tobacco Use Quit Date: 06/17/01 Smoking risk assessment performed?: Yes Alcohol Intake: former Drug use: Never Substance use type: does not use Details: last alcohol 24 years ago Do you feel safe at home: Yes Do you feel safe in your relationship?: Yes Exam Const General: cooperative and no acute distress HENMT Mouth: moist mucous membranes Eyes Conjunctivae: normal conjunctivae Skin Rashes: rashes noted (Well demarcated red circular rash under right breast, small area under left) Other: No signs of cellulitis or abscess Course Vital Signs Vital signs: Vital Signs Temperature 36.6 C 05/30/20 14:00 Pulse 100 H 05/30/20 14:00 Respiratory Rate 18 05/30/20 14:00 Blood Pressure 157/81 H 05/30/20 14:00 Pulse Oximetry 95 05/30/20 14:00 Temperature 36.6 C 05/30/20 14:00 Temperature Source Skin 05/30/20 14:00 Pulse 100 H 05/30/20 14:00 Respiratory Rate 18 05/30/20 14:00 Respiratory Effort 05/30/20 14:08 Blood Pressure 157/81 H 05/30/20 14:00 Pulse Oximetry 95 05/30/20 14:00 Oxygen Delivery Method Room Air 05/30/20 14:00 Oxygen Flow Rate 0 05/30/20 14:00 Pain Level 4 05/30/20 14:00
[2020-05-30 14:36] VITALS: PULSE 92
== END 2020-05-30 14:30 | disposition home or self-care (01) ==
LOC: ER 14:30
PROVIDERS: Emergency Provider Student in an Organized Health Care Education/Training Program; PCP Neuromusculoskeletal Medicine & OMM
DX: B37.2 Candidiasis of skin and nail (principal); J44.9 Chronic obstructive pulmonary disease, unspecified; Z87.891 Personal history of nicotine dependence
CPT/HCPCS: 36416; 82962; 99283

== ENCOUNTER 2021-01-03 09:00 | Outpatient (CLI) | payer MEDICARE, SELFPAY ==
[2021-01-03 10:54] LABS: ALT 20 U/L (14-59); AST 23 U/L (15-37); Alkaline Phosphatase 64 U/L (46-116); Anion Gap 11.6 mmol/L (3-11); BUN 11 mg/dL (7-18); Bilirubin, Total 0.4 mg/dL (0.2-1.0); CO2 25.4 mmol/L (21.0-32.0); CREATININE 0.9 mg/dL (0.55-1.02); Calcium 8.6 mg/dL (8.5-10.1); Calculated LDL 95 mg/dL (<100); Chloride 108 mmol/L (98-107); Cholesterol 200 mg/dL (<200); Glucose 90 mg/dL (74-106); HDL Cholesterol 56 mg/dL (40-60); Sodium 145 mmol/L (136-145); Total Protein 6.9 g/dL (6.4-8.2); Triglyceride 245 mg/dL (<150)
== END 2021-01-03 09:01 | disposition home or self-care (01) ==
LOC: LBO 09:03
DX: E78.5 Hyperlipidemia, unspecified (principal); R41.3 Other amnesia
CPT/HCPCS: 36415; 80053; 80061

== ENCOUNTER 2021-07-10 15:23 | Outpatient (REF) | payer MEDICARE, SELFPAY | END 2021-07-10 15:24 | disposition home or self-care (01) | LOC: LBN 15:23 | PROVIDERS: Visit Provider Nurse Practitioner Family | DX: N39.0 Urinary tract infection, site not specified (principal) | CPT/HCPCS: 87086 ==

== ENCOUNTER 2021-09-02 17:14 | Outpatient (REF) | payer MEDICARE, SELFPAY ==
[2021-09-04 11:31] LABS: COVID-19 RT-PCR UVMMC Result Negative (Negative)
== END 2021-09-02 17:15 | disposition home or self-care (01) ==
LOC: LBN 17:14
PROVIDERS: Visit Provider Nurse Practitioner Family
DX: R09.81 Nasal congestion (principal); R53.83 Other fatigue; Z20.822 Contact with and (suspected) exposure to COVID-19
CPT/HCPCS: U0003; U0005

== ENCOUNTER 2021-12-21 04:06 | Outpatient (CLI) | payer MEDICARE, SELFPAY ==
[2021-12-21 12:43] LABS: Anion Gap 8.5 mmol/L (3-11); BUN 23 mg/dL (7-18); CO2 26.5 mmol/L (21.0-32.0); CREATININE 0.8 mg/dL (0.55-1.02); Calcium 8.8 mg/dL (8.5-10.1); Chloride 105 mmol/L (98-107); Glucose 97 mg/dL (74-106); Sodium 140 mmol/L (136-145)
== END 2021-12-21 04:07 | disposition home or self-care (01) ==
LOC: LOS 04:07
DX: R41.3 Other amnesia (principal); L29.8 Other pruritus
CPT/HCPCS: 36415; 80048

== ENCOUNTER 2022-07-04 12:17 | Outpatient (CLI) | payer MEDICARE, SELFPAY ==
--- NOTE | 2022-07-04 12:00 | DI.RAD_ITS ---
Exam(s) XR THORACIC SPINE COMPLETE EXAM: XR THORACIC SPINE COMPLETE CLINICAL HISTORY: fall from standing to bottom 2 days ago,m54.50,m81.0. TECHNIQUE: 2D digital imaging was performed. COMPARISON: No exams were available for comparison FINDINGS: No evidence of fracture or listhesis. Multilevel degenerative disc disease, most evident in the lowe r thoracic spine. No scoliosis. No abnormal widening paraspinal lines. No significant osseous lesi ons. IMPRESSION: Degenerative changes. No fractures evident. DATA REPOSITORY: RADIATION DOSE DELIVERED:
--- NOTE | 2022-07-04 12:00 | DI.RAD_ITS ---
Exam(s) XR LUMBAR SPINE COMPLETE EXAM: XR LUMBAR SPINE COMPLETE CLINICAL HISTORY: fall from standing to bottom on ice 2 days ago,m54.50,m81.0. TECHNIQUE: 2D digital imaging was performed. COMPARISON: DX DEXA BONE DENSITY WITH DIAN from 09/22/2015 CR XR THORACIC SPINE COMPLETE from 07/04/2022 FINDINGS: Five views There is no evidence fracture. There is moderate-advanced disc space narrowing at L5-S1 level with v acuum phenomenon within this diminished disc space evident. Other disc spaces exhibit normal height with the exception of L1-2 which exhibits mild disc space narrowing and element of retrolisthesis of L1 upon L2. Degenerative disc disease also noted in the lower thoracic levels. There is degenerative anterolisthesis of L4 upon L5 and L5 upon S1, this related to advanced facet ar thropathy at these levels. There are no pars defects. A right hip prosthesis is noted. Small. IMPRESSION: Multilevel degenerative disc disease degenerative multilevel listhesis ease as described above. Right hip prosthesis. DATA REPOSITORY: RADIATION DOSE DELIVERED:
== END 2022-07-04 12:37 ==
LOC: DI 12:18
PROVIDERS: PCP Nurse Practitioner Family; Visit Provider Nurse Practitioner Family
DX: M54.59 Other low back pain (principal); M81.0 Age-related osteoporosis without current pathological fracture; M51.34 Other intervertebral disc degeneration, thoracic region; M51.37 Other intervertebral disc degeneration, lumbosacral region; Z96.641 Presence of right artificial hip joint
CPT/HCPCS: 72072; 72110

== ENCOUNTER 2022-08-29 02:46 | Outpatient (CLI) | payer MEDICARE, SELFPAY ==
[2022-08-29 15:48] LABS: ALT 21 U/L (14-59); AST 37 U/L (15-37); Alkaline Phosphatase 93 U/L (46-116); Anion Gap 9.5 mmol/L (3-11); BUN 15 mg/dL (7-18); Bilirubin, Total 0.4 mg/dL (0.2-1.0); CO2 26.5 mmol/L (21.0-32.0); CREATININE 0.9 mg/dL (0.55-1.02); Calcium 9.1 mg/dL (8.5-10.1); Calculated LDL 85 mg/dL (<100); Chloride 107 mmol/L (98-107); Cholesterol 174 mg/dL (<200); Estimated GFR 65.44 (mL/min/1.73m2); Glucose 92 mg/dL (74-106); HDL Cholesterol 72 mg/dL (40-60); Potassium 4.3 mmol/L (3.5-5.1); Sodium 143 mmol/L (136-145); Total Protein 7.5 g/dL (6.4-8.2); Triglyceride 88 mg/dL (<150)
== END 2022-08-29 02:47 | disposition home or self-care (01) ==
LOC: LBO 02:46
PROVIDERS: PCP Nurse Practitioner Family; Visit Provider Nurse Practitioner Family
DX: E78.5 Hyperlipidemia, unspecified (principal)
CPT/HCPCS: 36415; 80053; 80061

== ENCOUNTER 2022-09-06 16:00 | Emergency (ER) | payer MEDICARE, SELFPAY ==
[2022-09-06 16:08] VITALS: BP 133/90; PULSE 89; RESP 18; TEMP 37.4; O2SAT 96
--- NOTE | 2022-09-06 18:30 | DI.RAD_ITS ---
Exam(s) XR RIBS RT PA CHEST 3V EXAM: XR RIBS RT PA CHEST 3V CLINICAL HISTORY: fall, chest wall pain TECHNIQUE: 2D digital imaging was performed.Four images were obtained. COMPARISON: CR XR CHEST 2V PA LATERAL from 11/27/2018 CR XR THORACIC SPINE COMPLETE from 07/04/2022 FINDINGS: MEDIASTINUM: There is prominent new soft tissue in the right perihilar region. Central or right jeovanny r mass is suspected. HEART: Normal. PULMONARY VASCULATURE: Normal. LUNGS: Clear. PLEURAL SPACE: No pleural effusion or pneumothorax. BONE:Normal. RIGHT RIBS: Normal. OTHER FINDINGS:Normal. IMPRESSION: 1. New soft tissue in the right perihilar region. Central right hilar mass is suspected. A CT scan of the chest with contrast is recommended for further evaluation. 2. Unremarkable right ribs. Unexpected findings DATA REPOSITORY: RADIATION DOSE DELIVERED:
[2022-09-06] MEDS: Acetaminophen 325 MG TAB 650 MG PO (19:09)
[2022-09-06] MEDS: Lidocaine 5% Patch 1 PATCH TP (19:10)
--- NOTE | 2022-09-06 19:40 | W.ED.GENAD ---
Discharge Plan Disposition Patient Disposition: Home Condition: Improving Discharge Details Chief Complaint: Chest/Rib Clinical Impression: Chest wall contusion Primary Care Provider: [facility] ED Provider: Pasquale oCe Home Meds and New Rx's Prescriptions: No Action acetaminophen 500 mg capsule 1,000 mg PO TID PRN (Reason: pain) Qty: 90 0RF omeprazole magnesium 20 mg tablet,delayed release (DR/EC) 20 mg PO DAILY Qty: 90 0RF bupropion HCl 300 mg tablet extended release 24 hr 300 mg PO DAILY Qty: 90 4RF cetirizine 10 mg tablet 10 mg PO DAILY Qty: 90 3RF Rx Instructions: treatment failure with loratidine hydroxyzine HCl 10 mg tablet 10 mg PO QHS Qty: 90 0RF buspirone 15 mg tablet 15 mg PO BID Qty: 180 0RF triamcinolone acetonide [24 Hour Nasal Allergy] 55 mcg aerosol,spray 2 spray intranasal DAILY Qty: 16.9 2RF Rx Instructions: administer into each nostril fluocinolone 0.025 % ointment 1 applic topical BID Qty: 60 1RF betamethasone, augmented 0.05 % ointment 1 applic topical BID Qty: 50 1RF alendronate 70 mg tablet 70 mg PO QWEEK Qty: 12 3RF simvastatin 40 mg tablet 40 mg PO QHS Qty: 90 3RF fluoxetine 40 mg capsule 40 mg PO DAILY Qty: 90 3RF albuterol sulfate 90 mcg/actuation HFA aerosol inhaler See Rx Instructions .ROUTE .COMPLEX Qty: 18 1RF Dose Instruction: INHALE TWO PUFFS BY MOUTH EVERY 6 HOURS NEEDED FOR WHEEZING Rx Instructions: INHALE TWO PUFFS BY MOUTH EVERY 6 HOURS NEEDED FOR WHEEZING triamcinolone acetonide 0.025 % cream 1 applic topical BID Qty: 15 0RF Discharge Instructions Instructions: Contusion in Adults (ED) Additional Instructions: Please follow-up with your primary care doctor. Please return to the emergency department for any worsening symptoms. Medical Decision Making 77-year-old female presents after mechanical slip and fall onto right side sustaining ecchymosis to right anterior lateral lower chest wall, no respiratory distress hemodynamically stable. Pelvis stable, neurologically intact. No head injury. Pending for rib contusion versus rib fracture versus less likely pneumothorax versus pulmonary contusion low suspicion for pelvic fracture or hip dislocation given range of motion examination. Will obtain chest x-ray rib series x-ray pelvis. 20: 16 patient resting comfortably no acute distress no evidence of rib fracture or pelvic fracture. HPI General Date/Time Provider Initiated Documentation: 09/06/22 16:29. HPI Narrative: 77-year-old female presents after mechanical trip and fall over her dog's leash in the bathroom fell forward on her right side hitting right chest wall and right hip. Pain and bruising to the chest wall. No head injury no loss of conscious no nausea no vomiting no other symptoms. Related Data Home Medications Medication Instructions Recorded Confirmed acetaminophen 500 mg capsule 1,000 mg PO TID PRN pain #90 caps 12/29/20 08/24/22 triamcinolone acetonide 55 mcg 2 spray intranasal DAILY #16.9 mL 07/17/21 08/24/22 nasal spray aerosol (24 Hour Nasal Allergy) fluocinolone 0.025 % topical 1 applic topical BID #60 grams 09/29/21 08/24/22 ointment betamethasone, augmented 0.05 % 1 applic topical BID rash #50 grams 03/16/22 08/24/22 topical ointment alendronate 70 mg tablet 70 mg PO QWEEK #12 tabs 04/09/22 08/24/22 simvastatin 40 mg tablet 40 mg PO QHS #90 tabs 04/23/22 08/24/22 fluoxetine 40 mg capsule 40 mg PO DAILY #90 caps 04/30/22 08/24/22 albuterol sulfate 90 mcg/actuation See Rx Instructions .Route 05/29/22 08/24/22 aerosol inhaler .COMPLEX #18 grams bupropion HCl 300 mg 24 hr tablet, 300 mg PO DAILY #90 tabs 07/04/22 08/24/22 extended release buspirone 15 mg tablet 15 mg PO BID #180 tabs 07/04/22 08/24/22 cetirizine 10 mg tablet 10 mg PO DAILY #90 tabs 07/04/22 08/24/22 hydroxyzine HCl 10 mg tablet 10 mg PO QHS #90 tabs 07/04/22 08/24/22 omeprazole magnesium 20 mg 20 mg PO DAILY #90 tabs 08/24/22 08/24/22 tablet,delayed release triamcinolone acetonide 0.025 % 1 applic topical BID #15 grams 08/27/22 topical cream Previous Rx's Medication Instructions Recorded acetaminophen 500 mg capsule 1,000 mg PO TID PRN pain #90 caps 12/29/20 triamcinolone acetonide 55 mcg 2 spray intranasal DAILY #16.9 mL 07/17/21 nasal spray aerosol (24 Hour Nasal Allergy) fluocinolone 0.025 % topical 1 applic topical BID #60 grams 09/29/21 ointment betamethasone, augmented 0.05 % 1 applic topical BID rash #50 grams 03/16/22 topical ointment alendronate 70 mg tablet 70 mg PO QWEEK #12 tabs 04/09/22 simvastatin 40 mg tablet 40 mg PO QHS #90 tabs 04/23/22 fluoxetine 40 mg capsule 40 mg PO DAILY #90 caps 04/30/22 albuterol sulfate 90 mcg/actuation See Rx Instructions .Route 05/29/22 aerosol inhaler .COMPLEX #18 grams bupropion HCl 300 mg 24 hr tablet, 300 mg PO DAILY #90 tabs 07/04/22 extended release buspirone 15 mg tablet 15 mg PO BID #180 tabs 07/04/22 cetirizine 10 mg tablet 10 mg PO DAILY #90 tabs 07/04/22 hydroxyzine HCl 10 mg tablet 10 mg PO QHS #90 tabs 07/04/22 omeprazole magnesium 20 mg 20 mg PO DAILY #90 tabs 08/24/22 tablet,delayed release triamcinolone acetonide 0.025 % 1 applic topical BID #15 grams 08/27/22 topical cream Allergies Allergy/AdvReac Type Severity Reaction Status Date / Time pollen extracts Allergy Unknown Verified 09/06/22 16:08 ragweed pollen Allergy Unknown Verified 09/06/22 16:08 Sulfa (Sulfonamide AdvReac Intermediate Dizziness/L Verified 09/06/22 16:08 Antibiotics) ightheade erythromycin base AdvReac Mild dizziness Verified 09/06/22 16:08 General Stated Complaint: Chest/Rib MAI: 3 Review of Systems Narrative: Review of Systems Constitutional: negative Eyes: negative ENT: negative Cardiovascular: negative Respiratory: negative Gastrointestinal: negative : negative Musculoskeletal: Chest wall discomfort Skin: negative Neurologic: negative Psych: negative PFSH All Active Problems (Updated 09/06/22 @ 20:17 by Pasquale Coe MD) Hyperlipidemia (Chronic) Osteoporosis (Chronic) Chronic nasal congestion (Chronic) Memory changes (Chronic) Itching (Chronic) With chronic scratch/picking Advanced directives, counseling/discussion (Acute) Chronic toe pain, right foot (Chronic) Low back pain (Chronic) Dermatitis associated with moisture (Acute) Acid reflux (Chronic) Chest wall contusion (Acute) Medical History Allergic rhinitis Anemia Anxiety (~09/24/18) Contusion of right elbow COPD (chronic obstructive pulmonary disease) Depressive disorder Disorder of nervous system Herpes zoster Insomnia Nasal lesion Nicotine dependence Palpitations Polyp, nasal, cavity Right Temporomandibular joint disorder (~01/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 Brother No problems noted. Brother , age 70 Asthma Brother No problems noted. Son No problems noted. Maternal Grandfather , age 60 Cancer rectal cancer Maternal Grandmother , age 88 No problems noted. Social History Smoking/Tobacco Use Status: Former Tobacco Use tobacco type: e-cigarettes Quit Date: 06/17/01 Second Hand Exposure: Yes Smoking risk assessment performed?: Yes Alcohol Intake: former Drug use: Never Substance use type: does not use Counseling given: No Counseling provided: none Details: last alcohol 24 years ago Household members: spouse Pets and animals: Yes Pets and animals: cat(s), dog(s) and bird(s) Sexually active: No Do you think of yourself as: straight/heterosexual Current gender identity: female What is your relationship status?: How often do you talk on the phone with friends or family?: three or more times per week How often do you get together with friends or relatives?: decline to answer How often do you attend taoist or denominational services?: decline to answer Do you belong to any clubs or organized social groups?: decline to answer Panel score (0-1 are the most socially isolated patients): 2 What type of physical activity do you participate in: walking Frequency: 3-4 times per week Camille/Synagogue: Catholic Special camille needs: No Seatbelt use: always Drive intox or ride w/intox 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 Do you feel safe at home: Yes Do you feel safe in your relationship?: Yes Exam Narrative Exam Narrative: Physical Examination General: alert, awake, cooperative, resting comfortably, no acute distress HEENT: normocephalic, atraumatic; PERRL, EOM intact, conjunctiva normal; no nasal discharge; moist mucous membranes, oral and pharyngeal mucosa normal, tolerating secretions Neck: supple, trachea midline; full ROM Chest: Patient has ecchymosis over right anterior lateral lower chest wall Respiratory: normal respiratory effort, speaking in full sentences, clear to auscultation, no wheezing, rales or rhonchi Cardiac: regular rate, regular rhythm, S1S2 intact, no murmurs rubs or gallops GI: abdomen soft, non-tender, non-distended; no palpable mass or hepatosplenomegaly Skin: no lesions, rashes or trauma appreciated Neuro: AAOx3, normal speech, moving all extremities Extremities: Moving all extremities; pelvis stable Psych: Appropriate mood and affect Course Vital Signs Vital signs: Vital Signs Temperature 37.4 C 09/06/22 16:08 Pulse 89 09/06/22 16:08 Respiratory Rate 18 09/06/22 16:08 Blood Pressure 133/90 09/06/22 16:08 Pulse Oximetry 96 09/06/22 16:08 Temperature 37.4 C 09/06/22 16:08 Pulse 89 09/06/22 16:08 Respiratory Rate 18 09/06/22 16:08 Respiratory Effort Normal, Non-Labored 09/06/22 16:07 Blood Pressure 133/90 09/06/22 16:08 Pulse Oximetry 96 09/06/22 16:08 Oxygen Delivery Method Room Air 09/06/22 16:08 Oxygen Flow Rate 0 09/06/22 16:08
--- NOTE | 2022-09-06 19:50 | DI.RAD_ITS ---
Exam(s) XR PELVIS AP EXAM: XR PELVIS AP CLINICAL HISTORY: fall, right sided pain. TECHNIQUE: 2D digital imaging was performed. One image was obtained. COMPARISON: CR XR lumbar spine complete from 03/06/2018 FINDINGS: BONES: No acute fracture is present. No bony destructive lesion is seen. JOINTS: No dislocation present. The patient's right total hip replacement is unremarkable as visualiz ed. Degenerative changes are seen in the lower lumbar spine. SOFT TISSUE: Normal. IMPRESSION: No acute abnormality. DATA REPOSITORY: RADIATION DOSE DELIVERED:
--- NOTE | 2022-09-06 20:04 | DI.VRAD_ITS ---
PROCEDURE INFORMATION: Exam: XR Pelvis Exam date and time: 09/06/2022 7:40 PM Age: 77 years old Clinical indication: Other: Fall, right sided pain TECHNIQUE: Imaging protocol: Radiologic exam of the pelvis. Views: 1 or 2 view. COMPARISON: CT ABD PELVIS WITH CONTRAST 12/23/2015 2:17 PM FINDINGS: Bones/joints: Right hip arthroplasty is grossly intact and in near anatomic position No acute fracture. Soft tissues: Unremarkable. IMPRESSION: No acute findings. Dictated and Authenticated by: Alex Nieto MD. Ordering:OMAR Giordano MD
--- NOTE | 2022-09-06 20:04 | DI.VRAD_ITS ---
PROCEDURE INFORMATION: Exam: XR Chest Exam date and time: 09/06/2022 7:43 PM Age: 77 years old Clinical indication: Other: Fall, chest wall pain TECHNIQUE: Imaging protocol: Radiologic exam of the chest. Views: 1 view. COMPARISON: CR XR CHEST 2V PA LATERAL 11/27/2018 12:57 PM FINDINGS: Lungs: Unremarkable. No consolidation. Pleural spaces: Unremarkable. No pleural effusion. No pneumothorax. Heart/Mediastinum: Mild cardiomegaly. Tortuous aorta Bones/joints: Unremarkable. IMPRESSION: No acute findings. No discrete rib fracture noted Dictated and Authenticated by: Alex Nieto MD. Ordering:OMAR Giordano MD
[2022-09-06 20:48] VITALS: BP 132/78; PULSE 78; RESP 17; O2SAT 96
== END 2022-09-06 21:12 | disposition home or self-care (01) ==
PROVIDERS: Emergency Provider Emergency Medicine; PCP Nurse Practitioner Family
DX: S20.211A Contusion of right front wall of thorax, initial encounter (principal); W01.10XA Fall on same level from slipping, tripping and stumbling with subsequent striking against unspecified object, initial encounter; Y92.002 Bathroom of unspecified non-institutional (private) residence as the place of occurrence of the external cause; J44.9 Chronic obstructive pulmonary disease, unspecified
CPT/HCPCS: 99284; 71046; 71100; 72170; 99282

== ENCOUNTER 2022-09-27 00:31 | Outpatient (CLI) | payer MEDICARE, SELFPAY ==
--- NOTE | 2022-09-27 10:03 | DI.RAD_ITS ---
Exam(s) XR LUMBAR SPINE COMPLETE EXAM: XR LUMBAR SPINE COMPLETE CLINICAL HISTORY: increasing low back pain after fall in mid-August, M54.50. TECHNIQUE: 2D digital imaging was performed. Five views. COMPARISON: CR XR LUMBAR SPINE COMPLETE from 07/04/2022 FINDINGS: No evidence of acute fracture. Endplate osteophytes seen greater in the lower thoracic region. Narr owing of the L1-2 and L5-S1 disc spaces, stable. Prominent facet joint degenerative changes are note d at L 4 5 and L5-S1. Stable mild spondylolisthesis at L 1 2, L2-3 and L5-S1. No spondylolysis or s coliosis. Right hip prosthesis again noted. IMPRESSION: Stable appearance of degenerative changes of the lumbar spine. No evidence of fracture. DATA REPOSITORY: RADIATION DOSE DELIVERED:
--- NOTE | 2022-09-27 10:03 | DI.RAD_ITS ---
Exam(s) XR THORACIC SPINE COMPLETE EXAM: XR THORACIC SPINE COMPLETE CLINICAL HISTORY: increasing pain after fall in mid-August, dorsalgia, M54.9. TECHNIQUE: 2D digital imaging was performed. Three views. COMPARISON: CR XR THORACIC SPINE COMPLETE from 07/04/2022 CR XR LUMBAR SPINE COMPLETE from 09/27/2022 FINDINGS: BONES: There is no fracture or destructive lesion. There are degenerative changes in the lower thorac ic region with prominent endplate osteophytes seen greatest at T10-11 through T12-L1. Stable appeara nce from prior. SOFT TISSUE: Visualized lungs are clear. The heart size is normal. IMPRESSION: stable appearance of degenerative changes greatest in the lower thoracic region. DATA REPOSITORY: RADIATION DOSE DELIVERED:
== END 2022-09-27 00:51 ==
LOC: DI 00:31
PROVIDERS: PCP Nurse Practitioner Family; Visit Provider Nurse Practitioner Family
DX: M54.50 Low back pain, unspecified (principal); M54.9 Dorsalgia, unspecified
CPT/HCPCS: 72072; 72110

== ENCOUNTER 2022-10-26 00:36 | Outpatient (CLI) | payer MEDICARE, SELFPAY ==
--- NOTE | 2022-10-26 08:14 | DI.CT_ITS ---
Exam(s) CT CHEST W EXAM: CT CHEST W CLINICAL HISTORY: rib/chest pain, ? hilar mass on xrays, r07.9 TECHNIQUE: Imaging Protocol: Axial computed tomography images with coronal and sagittal reformatted images were created and reviewed CONTRAST MATERIAL: Intravenous: Omnipaque 350 Contrast volume:70 ml. COMPARISON: CT ABD PELVIS WITH CONTRAST from 12/23/2015 CT CHEST - LUNG CANCER SCREENING from 04/04/2016 CR,XR XR RIBS RT PA CHEST 3V from 09/06/2022 CR XR THORACIC SPINE COMPLETE from 09/27/2022 FINDINGS: Pulmonary parenchyma: No consolidation. Postobstructive changes right upper lobe. Multiple tiny pul monary nodules noted bilaterally, the largest is in the left lower lobe which measures 15 millimeters . Tracheobronchial tree: No bronchiectasis or mucous plugging. Mediastinum and Ivonne: Extensive adenopathy seen in the right paratracheal and right superior hilar re gion. The confluent adenopathy measures roughly 6 x 6.2 by 3 cm. There is encasement of the right u pper lobe pulmonary artery branches and bronchi.. Adenopathy also extends into the superior mediasti num. Subcarinal adenopathy present. Pleura: No effusion or pneumothorax. Heart: The heart is mildly dilated. Mild coronary artery calcifications are seen. Aorta: Thoracic aorta non-dilated. Mild atherosclerotic changes. Upper abdomen: 2.2 centimeter left adrenal nodule, cysts consistent with metastasis. Innumerable li sandra metastases. No biliary dilatation. Gallbladder, spleen, pancreas and right adrenal unremarkable . Bones: Degenerative changes in the lower thoracic spine. No lytic or blastic lesions visible.. Bran bacute appearing right lower rib fractures. Soft tissues: 8 millimeter nodule in the subcutaneous fat of the upper left anterior chest. Addition al nodule, partially included on the exam seen in the is subcutaneous fat of the anterolateral lower chest measuring 14 millimeters. Breasts are unremarkable and fatty replaced. IMPRESSION: Extensive right paratracheal and hilar adenopathy with encasement of right upper lobe pulmonary arter ies and bronchi. Multiple metastatic lesions, largest in the left lower lobe. Extensive liver metastases. Left adrenal metastasis. Two nodules are noted in the subcutaneous fat which could also represent metastatic lesions. Findings discussed with Mary Hernandez, covering provider. RADIATION DOSE DELIVERED: 341.05mGy.cm Total DLP DATA REPOSITORY: All CT scans at this facility are submitted to the National Radiology Data Registry (NRDR) Dose Index Registry (DIR) with the [employer] (ACR). RADIATION OPTIMIZATION: All CT scans at this facility use at least one of these dose optimization te chniques: automated exposure control; mA and/or kV adjustment per patient size (includes targeted exa ms where dose is matched to clinical indication); or iterative reconstruction.
[2022-10-26 10:56] LABS: CREATININE 0.9 mg/dL (0.55-1.02); Estimated GFR 65.44 (mL/min/1.73m2)
[2022-10-26] MEDS: Omnipaque 350 MG/ML 500 ML BTL-Imaging package 70 ML IJ (11:32)
== END 2022-10-26 00:56 ==
LOC: DI 00:37
PROVIDERS: PCP Nurse Practitioner Family; Visit Provider Physician Assistant
DX: R07.9 Chest pain, unspecified (principal); R91.8 Other nonspecific abnormal finding of lung field; R10.9 Unspecified abdominal pain; C22.9 Malignant neoplasm of liver, not specified as primary or secondary
CPT/HCPCS: 71260; 82565

== ENCOUNTER 2022-10-27 16:16 | Outpatient (REF) | payer MEDICARE, SELFPAY ==
[2022-10-27 16:36] LABS: ALT 58 U/L (14-59); AST 142 U/L (15-37); Albumin 3.2 g/dL (3.4-5.0); Alkaline Phosphatase 500 U/L (46-116); Anion Gap 12.2 mmol/L (3-11); BUN 13 mg/dL (7-18); Bilirubin, Total 0.5 mg/dL (0.2-1.0); CO2 24.8 mmol/L (21.0-32.0); CREATININE 0.8 mg/dL (0.55-1.02); Calcium 9.2 mg/dL (8.5-10.1); Chloride 105 mmol/L (98-107); Estimated GFR 75.37 (mL/min/1.73m2); Glucose 82 mg/dL (74-106); Sodium 142 mmol/L (136-145); Total Protein 6.8 g/dL (6.4-8.2)
[2022-10-27 17:01] LABS: Abs Immature Grans 0.08 10^3/uL (0.0-0.06); Absolute Basophil Count 0.13 10^3/uL (0.0-0.2); Absolute Lymphocyte Count 1.65 10^3/uL (1.2-3.4); Absolute Monocyte Count 1.12 10^3/uL (0.1-0.8); Absolute Neutrophil Count 7.85 10^3/uL (1.2-6.7); Basophils % 1.2; Eosinophils % 3.6; HCT 40.2 % (36.0-46.0); HGB 13.2 g/dL (11.2-15.7); Immature Grans % 0.7; Lymphocytes % 14.7; MCH 29.6 pg (27.0-33.0); MCHC 32.8 % (32.0-36.0); MCV 90 fL (80-95); MPV 9.7 fL (8.0-11.0); Neutrophils % 69.8; Platelet Count 552 10^3/uL (130-400); RBC 4.46 10^6/uL (3.93-5.22); RDW-SD 46.4 fL; WBC 11.24 10^3/uL (4.4-10.8)
== END 2022-10-27 16:17 | disposition home or self-care (01) ==
LOC: LBN 16:16
PROVIDERS: PCP Nurse Practitioner Family; Visit Provider Nurse Practitioner Family
DX: C79.89 Secondary malignant neoplasm of other specified sites; M54.59 Other low back pain; D64.9 Anemia, unspecified; E78.5 Hyperlipidemia, unspecified
CPT/HCPCS: 80053; 85025

== ENCOUNTER 2022-11-05 01:00 | Outpatient (CLI) | payer MEDICARE, SELFPAY ==
[2022-11-05] MEDS: Barium Sulfate 2% W/V-Berry Smoothie 450 ML BTL 950 ML PO (13:34)
[2022-11-05] MEDS: Normal Saline - Diluent 50 ML VIAL IJ ×2 (13:37→13:55)
[2022-11-05] MEDS: Omnipaque 350 MG/ML 100 ML BTL IJ (13:38)
--- NOTE | 2022-11-05 13:50 | DI.CT_ITS ---
Exam(s) CT ABDOMEN PELVIS W EXAM: CT ABDOMEN PELVIS W CLINICAL HISTORY: metastatic disease,c79.9 TECHNIQUE: Imaging Protocol: Axial computed tomography images with coronal and sagittal reformatted images were created and reviewed CONTRAST MATERIAL: Intravenous: Omnipaque 350 Contrast volume:150 mL Oral: Yes COMPARISON: CT ABD PELVIS WITH CONTRAST from 12/23/[address] CHEST W from 10/26/2022 FINDINGS: ABDOMEN: Lung Bases: There are nodule seen in the lung bases. The largest is in the left lower lobe and measu res 1.4 x 1.1 cm. Liver: Innumerable hepatic masses consistent with metastatic disease. They measure up to 4.5 cm in d iameter. Portal, Superior Mesenteric, and Splenic Veins: Unremarkable. Gallbladder and Biliary Tract: Calcifications are again seen within the wall of the gallbladder. The re is no biliary ductal dilatation. Pancreas: There is a 1 cm cyst in the tail of the pancreas. Spleen: Unremarkable. Adrenals: There is a 1.5 x 2.0 cm left adrenal nodule. The right adrenal gland is unremarkable. Kidneys: Normal size, contour and axis. No radiodense stones or obstructive uropathy. There is a 1.9 x 2.6 cm hypodense mass at the posterior aspect of the midpole of the left kidney. It does not meet the criteria for a simple cysts. Renal neoplasm is suspected. Abdominal Aorta: Abdominal portion non-dilated. Atherosclerosis is present. Bowel: No obstruction or bowel wall thickening. There is stool throughout the colon suggesting consti pation. There is no evidence of appendicitis. Peritoneal Cavity: There are several masses seen in the abdominal cavity. The largest is seen cleaner furniture ior to the inferior aspect of the anterior abdominal wall musculature and measures 2.1 x 2.2 cm. The re are masses seen in the right pararenal space. No free air.No significant ascites is seen. Lymph Nodes: Within normal limits. Bones: There are displaced fractures involving the right 10th and 11th ribs. There is some callus fo rmation about the fracture suggesting these are subacute. The patient has a right total hip replacem ent. Soft Tissues: There is a 1.5 x 1.3 cm mass in the subcutaneous tissues along the right abdominal wall . There are 2 other smaller subcutaneous masses present. PELVIS: Bladder: The urinary bladder is not well distended limiting evaluation. Reproductive Organs: Unremarkable as visualized. Lymph Nodes: Within normal limits. Bones: Within normal limits for the patient's age. IMPRESSION: 1. Findings of metastatic disease involving the lungs, liver and abdominal cavity. 2. Left adrenal nodule, subcutaneous nodules and pararenal masses suspicious for metastatic disease. 3. Solid hypodense left renal mass. A primary renal carcinoma should be considered. A nodule simila r to the other pararenal masses which are suspicious for metastatic disease cannot be excluded. 4. Subacute right rib fractures. RADIATION DOSE DELIVERED: 964.82mGy.cm Total DLP DATA REPOSITORY: All CT scans at this facility are submitted to the National Radiology Data Registry (NRDR) Dose Index Registry (DIR) with the [employer] (ACR). RADIATION OPTIMIZATION: All CT scans at this facility use at least one of these dose optimization te chniques: automated exposure control; mA and/or kV adjustment per patient size (includes targeted exa ms where dose is matched to clinical indication); or iterative reconstruction.
[2022-11-05] MEDS: Omnipaque 350 MG/ML 50 ML BTL IJ (13:54)
== END 2022-11-05 01:20 ==
LOC: DI 01:01
PROVIDERS: PCP Nurse Practitioner Family; Visit Provider Nurse Practitioner Family
DX: C79.9 Secondary malignant neoplasm of unspecified site (principal); R91.8 Other nonspecific abnormal finding of lung field; S22.41XA Multiple fractures of ribs, right side, initial encounter for closed fracture; X58.XXXA Exposure to other specified factors, initial encounter
CPT/HCPCS: 74177; J3490; Q9967

== ENCOUNTER 2022-11-27 10:00 | Emergency (ER) | payer MEDICARE, SELFPAY ==
[2022-11-27 10:06] VITALS: BP 133/90; PULSE 109; RESP 20; TEMP 36.3; O2SAT 94
--- NOTE | 2022-11-27 10:15 | DI.CT_ITS ---
Exam(s) CT ABDOMEN PELVIS W EXAM: CT ABDOMEN PELVIS W CLINICAL HISTORY: right sided abd pain, s/p liver biopsy yesterday. TECHNIQUE: Imaging Protocol: Axial computed tomography images with coronal and sagittal reformatted images were created and reviewed CONTRAST MATERIAL: Intravenous: Omnipaque-350 100cc Oral: None COMPARISON: CT CT ABDOMEN PELVIS W from 11/05/2022 FINDINGS: VISUALIZED LUNG BASES: There is a small right pleural effusion which was not previously present. Met astatic lung nodules are again noted.. There is no pneumothorax. ABDOMEN: There is small amount of fluid around the right hepatic lobe which has appearance of a subcapsular he matoma with thickness approximately 0.7 cm.. There is a small amount of ascites in the dependent asp ect of pelvis, not previously present and also probably related to the recent liver biopsy. LIVER: Multiple metastatic lesions are again noted throughout both hepatic lobes. GALLBLADDER/BILIARY: No obvious acute gallbladder pathology. CBD is not dilated. PANCREAS: No evidence of pancreatic mass nor dilatation of the pancreatic duct. SPLEEN: Spleen is not enlarged. No obvious intrasplenic lesions. Splenic and portal veins are paten t. ADRENALS: Mass in the left adrenal gland measuring 2.4 x 1.5 cm is again noted which may be metastati c. Right adrenal gland remains unremarkable. KIDNEYS:Small exophytic cyst off the posterior aspect of the inferior pole of the right kidney again noted. There is a larger partially exophytic mass off the posterior-lateral cortex of the left kidne y again noted which does not meet criteria for a cyst and this lobulated finding presently measures a pproximately 2.2 x 2.2 cm, similar to previous.. ABDOMINAL AORTA: Abdominal aorta is not enlarged. LYMPH NODES:There is no retroperitoneal nor paraaortic adenopathy. ABDOMINAL WALL: No evidence of significant anterior abdominal wall nor inguinal hernia. GI: There is no evidence of bowel obstruction, free air, nor abscess. PELVIS: GI: No evidence of appendicitis.No evidence of sigmoid diverticulitis. LYMPH NODES: There is no intrapelvic nor inguinal adenopathy. REPRODUCTIVE: Obscured by beam hardening artifact from right hip prosthesis. URINARY BLADDER: Also obscured by beam hardening artifact from right hip prosthesis. Bladder is not distended. OSSEOUS: Right hip prosthesis. No fractures. No lytic nor blastic osseous lesions identified. Mild degenerative anterolisthesis L4 upon L5. Normal disc height at this level. There is advanced disc space narrowing at L5-S1 disc sp juan level and minimal degenerative anterolisthesis L5 upon S1. IMPRESSION: 1. Small-moderate size subcapsular hematoma over the right hepatic lobe, most probably related to yes terday's liver biopsy. There are multiple metastatic lesions again noted throughout both lobes of th e liver. There is also a small amount of free fluid in the dependent aspect of the pelvis, probably also related to yesterday's liver biopsy. 2. Small right pleural effusion now evident. There is no pneumothorax. Metastatic lung nodules agai n noted 3. 2.2 x 2.2 cm partially exophytic mass in the left kidney which may be neoplastic. 4. 2.4 x 1.5 cm left adrenal mass which may be neoplastic such as metastatic. Report called by myself to ER physician RADIATION DOSE DELIVERED: 571.61mGy.cm Total DLP DATA REPOSITORY: All CT scans at this facility are submitted to the National Radiology Data Registry (NRDR) Dose Index Registry (DIR) with the [employer] (ACR). RADIATION OPTIMIZATION: All CT scans at this facility use at least one of these dose optimization te chniques: automated exposure control; mA and/or kV adjustment per patient size (includes targeted exa ms where dose is matched to clinical indication); or iterative reconstruction.
--- NOTE | 2022-11-27 10:30 | ED.GENADUL_ITS ---
Discharge Plan Disposition Patient Disposition: Home Condition: Stable Discharge Details Clinical Impression: Abdominal pain Primary Care Provider: [employer] ED Provider: Giles Bravo Home Meds and New Rx's Prescriptions: Continued bupropion HCl 300 mg tablet extended release 24 hr 300 mg PO DAILY Qty: 90 4RF cetirizine 10 mg tablet 10 mg PO DAILY Qty: 90 3RF Rx Instructions: treatment failure with loratidine hydroxyzine HCl 10 mg tablet 10 mg PO QHS Qty: 90 0RF buspirone 15 mg tablet 15 mg PO BID Qty: 180 0RF triamcinolone acetonide [24 Hour Nasal Allergy] 55 mcg aerosol,spray 2 spray intranasal DAILY Qty: 16.9 2RF Rx Instructions: administer into each nostril sucralfate [Carafate] 1 gram tablet 1 g PO TID Qty: 21 0RF omeprazole 20 mg capsule,delayed release(DR/EC) 20 mg PO DAILY Qty: 14 0RF ondansetron HCl 4 mg tablet 4 mg PO Q6H PRN (Reason: nausea and vomiting) Qty: 60 0RF senna 8.6 mg capsule See Rx Instructions PO DAILY Qty: 100 4RF Rx Instructions: 1-2 8.6 mgdaily orally daily; fluocinolone 0.025 % ointment 1 applic topical BID Qty: 60 1RF betamethasone, augmented 0.05 % ointment 1 applic topical BID Qty: 50 1RF alendronate 70 mg tablet 70 mg PO QWEEK Qty: 12 3RF simvastatin 40 mg tablet 40 mg PO QHS Qty: 90 3RF fluoxetine 40 mg capsule 40 mg PO DAILY Qty: 90 3RF albuterol sulfate 90 mcg/actuation HFA aerosol inhaler See Rx Instructions .ROUTE .COMPLEX Qty: 18 1RF Dose Instruction: INHALE TWO PUFFS BY MOUTH EVERY 6 HOURS NEEDED FOR WHEEZING Rx Instructions: INHALE TWO PUFFS BY MOUTH EVERY 6 HOURS NEEDED FOR WHEEZING triamcinolone acetonide 0.1 % cream 1 applic topical BID Qty: 30 0RF Rx Instructions: for no longer than 2 weeks at a time naloxone [Narcan] 4 mg/actuation spray,non-aerosol 1 spray intranasal Q2-3M PRN (Reason: opioid overdose) Qty: 2 4RF Rx Instructions: spray 1 dose into ONE nostril; alternate nostrils w each dose until help arrives oxycodone 10 mg tablet See Rx Instructions PO Q6H MDD 40 mg PRN (Reason: pain) Qty: 40 0RF Rx Instructions: 1/2-1 tab (5-10 mg) orally every 6 hours PRN; Discharge Instructions Additional Instructions: You have a small hematoma which is common after your procedure Follow up with your primary care provider within 1 week if you feel more ill, have severe worsening pain or difficulty breathing return to the emergency department Medical Decision Making 77 yo female with hx of metastatic cancer from unknown primary source who has had right sided abdominal pain for 2-3 days and states it increased slightly after having needle biopsy of a liver lesion yesterday at [facility] [place] and was d/c'd h ome after the procedure. She denies fevers, chills, chest pain, n/v. Oxycodone helped slightly. She is stable on arrival speaking clearly and in no distress. She has a soft abdomen with tenderness in the ruq and rlq no distention or guarding, the site where she had the biopsy in the ruq has no erythema or crepitus. Unclear etiology for her pain will proceed with cbc, cmp, lipase and ct abdomen/pelvis to evaluate for pancreatitis, cholecystitis, and less likely pneumoperitoneum Imaging shows subcapsular hematoma, chronic mets. Mild elevation in lft's not unexpected after her procedure. She is sleeping and easily awakens, no tenderness now and stable vitals. She will f/u with her pcp and return precautions given Differential Diagnosis Differential Diagnosis: post procedure pain, pancreatitis Medical Records Medical records reviewed: Yes I reviewed the patient's medical records. Imaging Data Radiologic Study: Attestation: I personally reviewed and interpreted this imaging study as follows: Imaging: CT Scan Radiologist's impression: IMPRESSION: 1. Small-moderate size subcapsular hematoma over the right hepatic lobe, most probably related to yesterday's liver biopsy.? There are multiple metastatic lesions again noted throughout both lobes of the liver.? There is also a small amount of free fluid in the dependent aspect of the pelvis, probably also related to yesterday's liver biopsy. 2. Small right pleural effusion now evident.? There is no pneumothorax.? Metastatic lung nodules again noted 3. 2.2 x 2.2 cm partially exophytic mass in the left kidney which may be neoplastic. 4. 2.4 x 1.5 cm left adrenal mass which may be neoplastic such as metastatic. Lab Data Lab results reviewed: Yes I reviewed the patient's lab results. HPI General Date/Time Provider Initiated Documentation: 11/27/22 10:01 . Limitations to Documentation: no limitations . Information obtained by: patient . History of Present Illness 77 year old F presents to the emergency department with the chief complaint of right sided abdominal pain, described as moderate, with intensity rated at 6. and is localized to the abdomen. Patient reports no radiation. Patient started experiencing this day(s) (3) and it has been constant. No relieving factors improve symptom(s), No exacerbating factors reported . Patient notes denies chest pain, fever/chills, nausea/vomiting and shortness of breath. Patient did receive the following treatments prior to arrival, none Related Data Home Medications Medication Instructions Recorded Confirmed triamcinolone acetonide 55 mcg 2 spray intranasal DAILY #16.9 mL 07/17/21 11/23/22 nasal spray aerosol (24 Hour Nasal Allergy) fluocinolone 0.025 % topical 1 applic topical BID #60 grams 09/29/21 11/23/22 ointment betamethasone, augmented 0.05 % 1 applic topical BID rash #50 grams 03/16/22 11/23/22 topical ointment alendronate 70 mg tablet 70 mg PO QWEEK #12 tabs 04/09/22 11/23/22 simvastatin 40 mg tablet 40 mg PO QHS #90 tabs 04/23/22 11/23/22 fluoxetine 40 mg capsule 40 mg PO DAILY #90 caps 04/30/22 11/23/22 albuterol sulfate 90 mcg/actuation See Rx Instructions .Route 05/29/22 11/23/22 aerosol inhaler .COMPLEX #18 grams bupropion HCl 300 mg 24 hr tablet, 300 mg PO DAILY #90 tabs 07/04/22 11/23/22 extended release buspirone 15 mg tablet 15 mg PO BID #180 tabs 07/04/22 11/23/22 cetirizine 10 mg tablet 10 mg PO DAILY #90 tabs 07/04/22 11/23/22 hydroxyzine HCl 10 mg tablet 10 mg PO QHS #90 tabs 07/04/22 11/23/22 triamcinolone acetonide 0.1 % 1 applic topical BID #30 grams 09/12/22 11/23/22 topical cream omeprazole 20 mg capsule,delayed 20 mg PO DAILY #14 caps 10/19/22 11/23/22 release sucralfate 1 gram tablet (Carafate) 1 g PO TID #21 tabs 10/19/22 11/23/22 ondansetron HCl 4 mg tablet 4 mg PO Q6H PRN nausea and 10/27/22 11/23/22 vomiting #60 tabs sennosides 8.6 mg capsule (senna) See Rx Instructions PO DAILY #100 11/06/22 11/23/22 caps naloxone 4 mg/actuation nasal 1 spray intranasal Q2-3M PRN 11/09/22 11/23/22 spray (Narcan) opioid overdose #2 ea oxycodone 10 mg tablet See Rx Instructions PO Q6H PRN 11/20/22 11/23/22 pain #40 tabs Previous Rx's Medication Instructions Recorded triamcinolone acetonide 55 mcg 2 spray intranasal DAILY #16.9 mL 07/17/21 nasal spray aerosol (24 Hour Nasal Allergy) fluocinolone 0.025 % topical 1 applic topical BID #60 grams 09/29/21 ointment betamethasone, augmented 0.05 % 1 applic topical BID rash #50 grams 03/16/22 topical ointment alendronate 70 mg tablet 70 mg PO QWEEK #12 tabs 04/09/22 simvastatin 40 mg tablet 40 mg PO QHS #90 tabs 04/23/22 fluoxetine 40 mg capsule 40 mg PO DAILY #90 caps 04/30/22 albuterol sulfate 90 mcg/actuation See Rx Instructions .Route 05/29/22 aerosol inhaler .COMPLEX #18 grams bupropion HCl 300 mg 24 hr tablet, 300 mg PO DAILY #90 tabs 07/04/22 extended release buspirone 15 mg tablet 15 mg PO BID #180 tabs 07/04/22 cetirizine 10 mg tablet 10 mg PO DAILY #90 tabs 07/04/22 hydroxyzine HCl 10 mg tablet 10 mg PO QHS #90 tabs 07/04/22 triamcinolone acetonide 0.1 % 1 applic topical BID #30 grams 09/12/22 topical cream omeprazole 20 mg capsule,delayed 20 mg PO DAILY #14 caps 10/19/22 release sucralfate 1 gram tablet (Carafate) 1 g PO TID #21 tabs 10/19/22 ondansetron HCl 4 mg tablet 4 mg PO Q6H PRN nausea and 10/27/22 vomiting #60 tabs sennosides 8.6 mg capsule (senna) See Rx Instructions PO DAILY #100 11/06/22 caps naloxone 4 mg/actuation nasal 1 spray intranasal Q2-3M PRN 11/09/22 spray (Narcan) opioid overdose #2 ea oxycodone 10 mg tablet See Rx Instructions PO Q6H PRN 11/20/22 pain #40 tabs Allergies Allergy/AdvReac Type Severity Reaction Status Date / Time pollen extracts Allergy Unknown Verified 11/23/22 11:28 ragweed pollen Allergy Unknown Verified 11/23/22 11:28 Sulfa (Sulfonamide AdvReac Intermediate Dizziness/L Verified 11/23/22 11:28 Antibiotics) ightheade erythromycin base AdvReac Mild dizziness Verified 11/23/22 11:28 ibuprofen AdvReac Mild Dizzyness Verified 11/23/22 11:28 General Stated Complaint: Abd Prob MAI: 3 Review of Systems All systems reviewed & are unremarkable except as noted in HPI and below Constitutional Constitutional: Denies chills, Denies fever(s) and Denies weakness Cardiovascular Cardiovascular: Denies chest pain and Denies dyspnea Respiratory Respiratory: Denies cough and Denies dyspnea Gastrointestinal Gastrointestinal: Denies nausea and Denies vomiting Genitourinary Genitourinary: Denies dysuria Musculoskeletal Musculoskeletal: Denies joint swelling Integumentary/Breasts Skin/Breast: Denies rash Neurologic Neurologic: Denies weakness PFSH All Active Problems (Updated 11/27/22 @ 12:30 by Giles Bravo MD) Abdominal pain (Acute) Frequent falls (Acute) Constipation due to pain medication (Acute) Abnormal weight loss (Acute) Generalized anxiety disorder (Acute) Cancer related pain (Acute) Hyperlipidemia (Chronic) Osteoporosis (Chronic) Chronic nasal congestion (Chronic) Memory changes (Chronic) Itching (Chronic) With chronic scratch/picking Advanced directives, counseling/discussion (Acute) Chronic toe pain, right foot (Chronic) Low back pain (Chronic) Dermatitis associated with moisture (Acute) Acid reflux (Chronic) Back pain (Acute) Metastatic cancer (Acute) unknown origin Medical History Allergic rhinitis Anemia Anxiety (~09/24/18) Contusion of right elbow COPD (chronic obstructive pulmonary disease) Depressive disorder Disorder of nervous system Herpes zoster Insomnia Nasal lesion Nicotine dependence Palpitations Polyp, nasal, cavity Right Temporomandibular joint disorder (~01/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 Brother No problems noted. Brother , age 70 Asthma Brother No problems noted. Son No problems noted. Maternal Grandfather , age 60 Cancer rectal cancer Maternal Grandmother , age 88 No problems noted. Social History Smoking/Tobacco Use Status: Former Tobacco Use tobacco type: e-cigarettes Quit Date: 06/17/01 Second Hand Exposure: Yes Smoking risk assessment performed?: Yes Alcohol Intake: former Drug use: Never Substance use type: does not use Counseling given: No Counseling provided: none Details: last alcohol 24 years ago Household members: spouse Pets and animals: Yes Pets and animals: cat(s), dog(s) and bird(s) Sexually active: No Do you think of yourself as: straight/heterosexual Current gender identity: female What is your relationship status?: How often do you talk on the phone with friends or family?: three or more times per week How often do you get together with friends or relatives?: decline to answer How often do you attend buddhism or anabaptism services?: decline to answer Do you belong to any clubs or organized social groups?: decline to answer Panel score (0-1 are the most socially isolated patients): 2 What type of physical activity do you participate in: walking Frequency: 3-4 times per week Camille/Zoroastrianism: Zoroastrianism Special camille needs: No Seatbelt use: always Drive intox or ride w/intox recycling collections driver: No Do you feel safe at home: Yes Do you feel safe in your relationship?: Yes Exam Const General: no acute distress Orientation: alert HENMN Head: normal to inspection Ears: external ears normal General nose exam: external nose normal Mouth: moist mucous membranes Eyes General: appearance normal, both eyes and all related structures Neck Neck: normal visual inspection Resp Effort & Inspection: normal respiratory effort and able to speak in complete sentences Cardio Rate: regular rate GI Palpation: soft and tender Skin General skin exam: no rashes or lesions noted Neuro General: patient alert and patient oriented x3 Extrem General: normal to inspection Psych Mental Status: mental status grossly normal Course Vital Signs Vital signs: Vital Signs Temperature 36.3 C L 11/27/22 10:06 Pulse 109 H 11/27/22 10:06 Respiratory Rate 20 11/27/22 10:06 Blood Pressure 133/90 11/27/22 10:06 Pulse Oximetry 94 11/27/22 10:06 Temperature 36.3 C L 11/27/22 10:06 Temperature Source Tympanic 11/27/22 10:06 Pulse 109 H 11/27/22 10:06 Respiratory Rate 20 11/27/22 10:06 Respiratory Effort Normal 11/27/22 10:09 Blood Pressure 133/90 11/27/22 10:06 Blood Pressure Position Supine 11/27/22 10:06 Pulse Oximetry 94 11/27/22 10:06 Oxygen Delivery Method Room Air 11/27/22 10:06 Oxygen Flow Rate 0 11/27/22 10:06 Pain Level 9 11/27/22 10:06
[2022-11-27 10:48] LABS: Abs Immature Grans 0.19 10^3/uL (0.0-0.06); Absolute Basophil Count 0.07 10^3/uL (0.0-0.2); Absolute Lymphocyte Count 1.12 10^3/uL (1.2-3.4); Absolute Monocyte Count 0.88 10^3/uL (0.1-0.8); Absolute Neutrophil Count 12.33 10^3/uL (1.2-6.7); Basophils % 0.5; HCT 44.6 % (36.0-46.0); HGB 14.2 g/dL (11.2-15.7); Immature Grans % 1.3; Lymphocytes % 7.7; MCH 29.2 pg (27.0-33.0); MCHC 31.8 % (32.0-36.0); MCV 92 fL (80-95); Neutrophils % 84.5; Nucleated RBC 0.1 % (0.0-0.3); Platelet Count 446 10^3/uL (130-400); RBC 4.87 10^6/uL (3.93-5.22); RDW 17.7 % (11.7-14.6); RDW-SD 57.5 fL; WBC 14.59 10^3/uL (4.4-10.8)
[2022-11-27] MEDS: HYDROmorphone 2 MG/ML SYR 0.5 MG IVP (10:51)
[2022-11-27] MEDS: Normal Saline 1,000 ML 1000 ML IV (10:51)
[2022-11-27] MEDS: Normal Saline - Diluent 50 ML VIAL IJ (10:59)
[2022-11-27 11:02] LABS: ALT 109 U/L (14-59); AST 318 U/L (15-37); Albumin 2.4 g/dL (3.4-5.0); Alkaline Phosphatase 799 U/L (46-116); Anion Gap 16.8 mmol/L (3-11); BUN 34 mg/dL (7-18); Bilirubin, Direct 1.1 mg/dL (0.0-0.2); Bilirubin, Total 1.6 mg/dL (0.2-1.0); CO2 20.2 mmol/L (21.0-32.0); CREATININE 1.2 mg/dL (0.55-1.02); Calcium 8.6 mg/dL (8.5-10.1); Chloride 100 mmol/L (98-107); Estimated GFR 46.33 (mL/min/1.73m2); Glucose 101 mg/dL (74-106); Lipase 53 U/L (16-77); Magnesium 2.2 mg/dL (1.8-2.4); Potassium 4.2 mmol/L (3.5-5.1); Sodium 137 mmol/L (136-145); Total Protein 6.9 g/dL (6.4-8.2)
[2022-11-27 11:07] LABS: PTT Activated 25.1 sec (21.5-31.9); Prothrombin Time 12.7 sec (9.3-11.0)
[2022-11-27 11:09] VITALS: BP 118/76; PULSE 78; RESP 18; O2SAT 99
[2022-11-27 11:11] LABS: INR 1.2 (0.9-1.1)
--- NOTE | 2022-11-27 11:52 | NUR.NOTE ---
Nursing Note: Pt and pt's SO updated with plan of care. Pt has warm blankets and call light within reach.
[2022-11-27 11:59] VITALS: BP 108/72; PULSE 64; RESP 16; O2SAT 95
[2022-11-27 12:23] VITALS: BP 117/70; PULSE 89; RESP 16; O2SAT 95
== END 2022-11-27 12:43 | disposition home or self-care (01) ==
PROVIDERS: Emergency Provider Emergency Medicine; PCP Nurse Practitioner Family
DX: R10.9 Unspecified abdominal pain (principal)
CPT/HCPCS: 80053; 83690; 96361; 96374; 99285; 74177; 82248; 83735; 85025; 85610; 85730; 99284; J1170

== ENCOUNTER 2022-11-30 13:44 | Outpatient (CLI) | payer MEDICARE, SELFPAY ==
--- NOTE | 2022-11-30 13:15 | DI.CT_ITS ---
Exam(s) CT HEAD WO/W EXAM: CT HEAD WO/W CLINICAL HISTORY: confusion,METASTATIC CA, C79.9,C7A.8. TECHNIQUE: Imaging Protocol: Both noninfused and contrast infused CT scans of the brain were perform ed. IV Contrast Dose =100 cc Axial computed tomography images with coronal and sagittal reformatted images were created and review ed COMPARISON: CT CT HEAD FACIAL WO from 11/27/2018 FINDINGS: There are no skull fractures nor skull lesions. There is no significant fluid in the visualized par anasal sinuses. There is no evidence of intracranial hemorrhage, mass effect, or shift of midline structures. There are no extra-axial fluid collections. The ventricles are not enlarged or shifted and there is no blo od within the ventricular system nor within the basal cisterns.There is abundant bilateral periventri cular hypodensity consistent with chronic small vessel disease. There are no ring enhancing lesions in the brain. There is, however, an enhancing dural-based lesion in the left frontal lobe measuring approximately 2 .3 by 1.2 cm consistent with probable meningioma. This slightly indents the adjacent left frontal lo be but without evidence of prominent frontal lobe edema at this level. No adjacent skull erosion. IMPRESSION: There is an extra-axial enhancing lesion over the left frontal lobe measuring approximately 2.3 x 1.2 cm, probably a meningioma. No ring enhancing intra-axial lesions in the brain. No skull lesions Abundant periventricular white matter chronic small vessel disease. RADIATION DOSE DELIVERED: 1,287.26mGy.cm Total DLP DATA REPOSITORY: All CT scans at this facility are submitted to the National Radiology Data Registry (NRDR) Dose Index Registry (DIR) with the [employer] (A[employer]). RADIATION OPTIMIZATION: All CT scans at this facility use at least one of these dose optimization te chniques: automated exposure control; mA and/or kV adjustment per patient size (includes targeted exa ms where dose is matched to clinical indication); or iterative reconstruction.
[2022-11-30] MEDS: Normal Saline Flush 10 ML SYR IVP (14:54)
[2022-11-30] MEDS: Omnipaque 350 MG/ML 100 ML BTL IJ (14:55)
[2022-11-30] MEDS: Normal Saline - Diluent 50 ML VIAL IJ (14:55)
== END 2022-11-30 14:04 ==
LOC: DI 13:44
PROVIDERS: PCP Nurse Practitioner Family; Visit Provider Nurse Practitioner Family
DX: C79.9 Secondary malignant neoplasm of unspecified site (principal); C7A.8 Other malignant neuroendocrine tumors
CPT/HCPCS: 70470; J3490

== ENCOUNTER 2022-12-05 20:34 | Inpatient (IN) | payer MEDICARE, SELFPAY ==
[2022-12-05] VITALS (27 sets, daily range): BP systolic 91–132; BP diastolic 34–84; PULSE 92–99; RESP 19–37; TEMP 34.6; O2SAT 47–99
--- NOTE | 2022-12-05 20:30 | RT.EKG_ITS ---
APPROVED REPORT Exam: Resting ECG Reason for Exam: short of breath Patient Location: E HR:95 bpm ECG Measurements Heart Rate 95 AXIS NH 212 P 38 QRSd 68 QRS 41 QT 414 T 118 QTc 522 Conclusion Sinus rhythm...normal P axis, V-rate 60- 99 Borderline prolonged NH interval...NH >207, V-rate 91-120 Anteroseptal infarct, age indeterminate...Q >35mS, T neg, V1-V2 Abnormal T, consider ischemia, lateral leads...T <-0.20mV, I aVL V5 V6 Prolonged QT interval...QTc >500mS
--- NOTE | 2022-12-05 21:00 | DI.CT_ITS ---
Exam(s) CT CHEST PE ABD PELVIS W EXAM: CT CHEST PE ABD PELVIS W CLINICAL HISTORY: cancer, SOB, abdominal pain, recent liver biopsy. TECHNIQUE: Imaging Protocol: Axial CT angiography was performed with multi-slice acquisition and mu lti-planar and/or 3D reconstructions. CONTRAST MATERIAL: Intravenous: Omnipaque 350 Contrast volume:70 ml COMPARISON: CT CT CHEST W from 10/26/[address] ABDOMEN PELVIS W from 11/27/2022 FINDINGS: CHEST: Pulmonary Arteries: No evidence of filling defect to suggest pulmonary emboli. Tracheobronchial tree: Patent where visualized. Mediastinum and Ivonne: Extensive mass/adenopathy seen from the right paratracheal through right hilar and subcarinal regions. There is mass effect upon the superior vena cava no occlusion. Again there is again noted to be extreme to attenuation of the right upper lobe pulmonary artery and some attenua tion of the inferior are right pulmonary artery. Findings similar to prior. Pulmonary parenchyma: Limited by respiratory motion. Roughly stable nodules in the right upper lobe . New infiltrate in the lingula and left upper lobe. Scattered other smaller pulmonary nodules note d at the lung bases which have. A increase in size the and number compared with the previous exam. Pleura: Small bilateral pleural effusions, right greater than left, new since prior. No pneumothorax . Heart: The heart is not dilated. Trace pericardial effusion. Coronary artery calcifications. Aorta: Thoracic aorta non-dilated. Atherosclerotic changes. No dissection Bones: Degenerative changes. No definite metastatic lesions. Old rib fractures. Tubes, Catheters, and Lines: None Soft tissues: Increased size of nodule in the the anterior left upper chest wall. ABDOMEN: Exam is limited by motion Liver: Interval increase in size of liver metastases which occupying the mid majority of the liver. Gallbladder and Biliary Tract: No radiodense calculus or dilation. Pancreas: Normal density, no abnormal calcifications or inflammatory process. Spleen: Normal. Adrenals: Left adrenal mass, roughly stable. Kidneys: Normal size, contour and axis. No radiodense stones or obstructive uropathy. No masses seen. Abdominal Aorta/branch vessels: Abdominal portion non-dilated. Atherosclerotic changes. Atheroscle rotic changes and moderate to severe stenosis of the left common femoral artery. Right common femora l artery shows mild stenosis. Bowel: No obstruction or bowel wall thickening. Appendix is unremarkable. Peritoneal Cavity: Small amount of ascites, increasing from prior. Roughly stable mesenteric mass be low level of the umbilicus. Perirenal masses obscured by artifact. Lymph Nodes: Enlarged lymph node again noted in the diamond hepatis Bones: Right hip prosthesis. Degenerative changes in the spine. Soft Tissues: Edema, worsening from prior. Mass again noted in the lateral subcutaneous fat at the l evel of the right lower ribs. PELVIS: Bladder: Symmetric distention, no gross wall thickening. Reproductive Organs: Unremarkable as visualized. Lymph Nodes: Within normal limits. Bones: Within normal limits. IMPRESSION: 1. No evidence of pulmonary embolism. 2. Interval increase in size and number of metastatic nodules in both lower lobes. Roughly stable la rge mass/adenopathy involving the right hilum, paratracheal and subcarinal regions with vascular atte nuation. 3. Acute appearing infiltrates in involving the left upper lobe and lingula. 4. Worsening of metastatic disease of the liver. Relatively stable other foci of metastatic disease. Mildly increased ascites. RADIATION DOSE DELIVERED: 908.56mGy.cm Total DLP DATA REPOSITORY: All CT scans at this facility are submitted to the National Radiology Data Registry (NRDR) Dose Index Registry (DIR) with the [employer] (ACR). RADIATION OPTIMIZATION: All CT scans at this facility use at least one of these dose optimization te chniques: automated exposure control; mA and/or kV adjustment per patient size (includes targeted exa ms where dose is matched to clinical indication); or iterative reconstruction.
[2022-12-05 21:23] LABS: Abs Immature Grans 1.41 10^3/uL (0.0-0.06); HCT 50.9 % (36.0-46.0); HGB 15.8 g/dL (11.2-15.7); MCH 29.6 pg (27.0-33.0); MCV 95 fL (80-95); MPV 9.4 fL (8.0-11.0); Platelet Count 418 10^3/uL (130-400); RBC 5.34 10^6/uL (3.93-5.22); RDW 20.2 % (11.7-14.6); RDW-SD 67.3 fL; WBC 23.93 10^3/uL (4.4-10.8)
[2022-12-05 21:35] LABS: Absolute Lymphocyte Count 0.96 10^3/uL (1.2-3.4); Absolute Monocyte Count 2.39 10^3/uL (0.1-0.8); Absolute Neutrophil Count 20.58 10^3/uL (1.2-6.7); Bands % 1
[2022-12-05 21:36] LABS: Basophilic Stippling 1+; Diff Comment Manual Differential
[2022-12-05 21:45] LABS: ALT 469 U/L (14-59); Albumin 2.3 g/dL (3.4-5.0); Anion Gap 31.5 mmol/L (3-11); BUN 45 mg/dL (7-18); CO2 10.5 mmol/L (21.0-32.0); Calcium 8.8 mg/dL (8.5-10.1); Chloride 96 mmol/L (98-107); Glucose 79 mg/dL (74-106); Lipase 61 U/L (16-77); NT-proBNP 14028 pg/mL (<300); Potassium 5.4 mmol/L (3.5-5.1); Sodium 138 mmol/L (136-145); Total Protein 6.6 g/dL (6.4-8.2)
[2022-12-05 21:53] LABS: Troponin I 326 ng/L (<or=60)
[2022-12-05] MEDS: HYDROmorphone 2 MG/ML SYR 0.5 MG IVP (22:04)
[2022-12-05] MEDS: Omnipaque 350 MG/ML 100 ML BTL IJ (22:28)
[2022-12-05] MEDS: Normal Saline - Diluent 50 ML VIAL IJ (22:29)
[2022-12-05 22:38] LABS: Alkaline Phosphatase 996 U/L (46-116)
[2022-12-05 22:41] LABS: AST 2857 U/L (15-37)
[2022-12-05] MEDS: Lactated Ringers 500 ML IV (23:00)
--- NOTE | 2022-12-05 23:20 | W.ED.GENAD ---
Discharge Plan Disposition Patient Disposition: Admit to [facility] Condition: Critical Discharge Details Chief Complaint: RespSymp Clinical Impression: Metastatic disease, Lung cancer, Acute lactic acidosis, Elevated troponin, Acute hyperkalemia, GENNARO (acute kidney injury) Primary Care Provider: [facility] ED Provider: Deep Montez Home Meds and New Rx's Prescriptions: No Action omeprazole 40 mg capsule,delayed release(DR/EC) 40 mg PO DAILY Qty: 30 3RF bupropion HCl 300 mg tablet extended release 24 hr 300 mg PO DAILY Qty: 90 4RF cetirizine 10 mg tablet 10 mg PO DAILY Qty: 90 3RF Rx Instructions: treatment failure with loratidine hydroxyzine HCl 10 mg tablet 10 mg PO QHS Qty: 90 0RF buspirone 15 mg tablet 15 mg PO BID Qty: 180 0RF triamcinolone acetonide [24 Hour Nasal Allergy] 55 mcg aerosol,spray 2 spray intranasal DAILY Qty: 16.9 2RF Rx Instructions: administer into each nostril sucralfate [Carafate] 1 gram tablet 1 g PO TID Qty: 21 0RF ondansetron HCl 4 mg tablet 4 mg PO Q6H PRN (Reason: nausea and vomiting) Qty: 60 0RF senna 8.6 mg capsule See Rx Instructions PO DAILY Qty: 100 4RF Rx Instructions: 1-2 8.6 mgdaily orally daily; fluocinolone 0.025 % ointment 1 applic topical BID Qty: 60 1RF betamethasone, augmented 0.05 % ointment 1 applic topical BID Qty: 50 1RF alendronate 70 mg tablet 70 mg PO QWEEK Qty: 12 3RF simvastatin 40 mg tablet 40 mg PO QHS Qty: 90 3RF fluoxetine 40 mg capsule 40 mg PO DAILY Qty: 90 3RF albuterol sulfate 90 mcg/actuation HFA aerosol inhaler See Rx Instructions .ROUTE .COMPLEX Qty: 18 1RF Dose Instruction: INHALE TWO PUFFS BY MOUTH EVERY 6 HOURS NEEDED FOR WHEEZING Rx Instructions: INHALE TWO PUFFS BY MOUTH EVERY 6 HOURS NEEDED FOR WHEEZING triamcinolone acetonide 0.1 % cream 1 applic topical BID Qty: 30 0RF Rx Instructions: for no longer than 2 weeks at a time naloxone [Narcan] 4 mg/actuation spray,non-aerosol 1 spray intranasal Q2-3M PRN (Reason: opioid overdose) Qty: 2 4RF Rx Instructions: spray 1 dose into ONE nostril; alternate nostrils w each dose until help arrives oxycodone 10 mg tablet See Rx Instructions PO Q6H MDD 40 mg PRN (Reason: pain) Qty: 70 0RF Rx Instructions: 1/2-1 tab (5-10 mg) orally every 6 hours PRN; Medical Decision Making [id number] --77-year-old female with history of metastatic cancer, pathology from recent biopsy of liver lesion 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 I am concerned with potential acute pulmonary embolism. Plan to obtain CT of the chest. I will also obtain CT of the abdomen pelvis given diffuse abdominal pain, recent biopsy. EKG was reviewed and interpreted by me: Please see report, sinus rhythm 95 bpm, T wave inversions noted lead I and aVL. Prolonged QT at 522 corrected. No stemi. Patient has multiple lab abnormalities including elevated troponin, elevated BNP. Concern for potential congestive heart failure. Creatinine is elevated at 2.0 from baseline 1.2. GFR is depressed at 25. I will give IV fluid bolus following CT contrast. Also concern for potential infectious etiology. Patient has leukocytosis of 24,000 and lactic acidosis with lactate of 17. Urinalysis is pending. Severe anion gap acidosis. Mild hyperkalemia noted. --Patient initially received crystalloid 500 mL. I will give second 500 mL bolus. 0007 --CT of the chest and abdomen pelvis was interpreted by radiology: IMPRESSION: 1. ? There is a large right upper lobe, paramediastinal pulmonary mass present. There is extension into the middle and anterior mediastinum. There is at least compression, if not invasion of the superior vena cava. There is encasement of the right upper lobe pulmonary artery. 2. ? There are multiple bilateral pulmonary nodules consistent with disseminated metastatic disease. 3. ? There is right hilar, left hilar right bronchial, subcarinal and precarinal adenopathy present. Retroperitoneal and peritoneal metastatic adenopathy. Subcutaneous metastatic disease present within the abdomen. 4. ? There is no evidence of filling defects within the pulmonary arterial circulation to suggest pulmonary embolism. 5. ? The thoracic aorta shows no evidence of aneurysmal dilatation, dissection or occlusive disease. The thoracic aortic great vessels appear normal. 6. ? There is a small pericardial effusion present. 7. ? There are diffuse innumerable metastatic lesions within the left and right liver lobes occupying approximately 80% of the volume of the liver. 8. ? The left common femoral artery shows moderate to severe atherosclerosis with approximately 60-70% stenosis. Plan to initiate treatment with Zosyn IV for broad-spectrum coverage. Will obtain second IV. [id number] --I spoke with the patient's son and and reviewed diagnostic results with him. They understand that she is critically ill at this time. They request that she receive pain medication to remain comfortable. If there are emergent interventions that could help with her illness including antibiotics they would be agreeable to this. They do note that she has an advanced directive that request CPR be performed but they declined intubation. I called and spoke with hospitalist on-call, Dr. Powell, discussed ED presentation and course including diagnostics, he will admit the patient to the ICU. He request bridging orders be placed. -- Notified by nursing that patient's blood pressure is low with a MAP of 55. He has received 1 L fluid. I will give additional 500 mL bolus at this time. Lab Data Lab results reviewed: Yes I reviewed the patient's lab results. Labs: Laboratory Tests Range/Units 12/05/22 12/05/22 12/05/22 21:00 21:00 21:00 WBC (4.4-10.8) 10^3/uL 23.93 H RBC (3.93-5.22) 10^6/uL 5.34 H Hgb (11.2-15.7) g/dL 15.8 H Hct (36.0-46.0) % 50.9 H MCV (80-95) fL 95 MCH (27.0-33.0) pg 29.6 MCHC (32.0-36.0) % 31.0 L RDW (11.7-14.6) % 20.2 H Plt Count (130-400) 10^3/uL 418 H MPV (8.0-11.0) fL 9.4 Immature Gran % 0.0 Neutrophils % 85.0 Band Neutrophils % 1 Lymphocytes % 4.0 Monocytes % 10.0 Eosinophils % 0.0 Basophils % 0.0 Nucleated RBC % (0.0-0.3) % 0.0 Absolute Neutrophils (1.2-6.7) 10^3/uL 20.58 H Absolute Lymphocytes (1.2-3.4) 10^3/uL 0.96 L Absolute Monocytes (0.1-0.8) 10^3/uL 2.39 H Absolute Eosinophils (0.0-0.7) 10^3/uL 0.00 Absolute Basophils (0.0-0.2) 10^3/uL 0.00 RBC Morphology See Below Basophilic Stippling 1+ VBG Lactate (0.6-1.4) mmol/L Sodium (136-145) mmol/L 138 Potassium (3.5-5.1) mmol/L 5.4 H Chloride (98-107) mmol/L 96 L Carbon Dioxide (21.0-32.0) mmol/L 10.5 L Anion Gap (3-11) mmol/L 31.5 H BUN (7-18) mg/dL 45 H Creatinine (0.55-1.02) mg/dL 2.0 H Est GFR (CKD-EPI 2020) (mL/min/1.73m2) 25.10 Glucose (74-106) mg/dL 79 Calcium (8.5-10.1) mg/dL 8.8 Total Bilirubin (0.2-1.0) mg/dL 2.0 H AST (15-37) U/L 2857 H ALT (14-59) U/L 469 H Alkaline Phosphatase (46-116) U/L 996 H Troponin I (<or=60) ng/L 326 H* NT-Pro-B Natriuret Pep (<300) pg/mL 30975 H Total Protein (6.4-8.2) g/dL 6.6 Albumin (3.4-5.0) g/dL 2.3 L Lipase (16-77) U/L 61 Urine Color (Yellow) Urine Clarity (Clear) Urine pH (5-8) Ur Specific [place] (1.005-1.025) Urine Protein (Negative) mg/dL Urine Ketones (Negative) mg/dL Urine Blood (Negative) Urine Nitrite (Negative) Urine Bilirubin (Negative) Urine Urobilinogen (Up to 0.2) mg/dL Ur Leukocyte Esterase (Negative) Urine RBC (0-2) HPF Urine WBC (0-5) HPF Ur Epithelial Cells (Negative) HPF Urine Crystals (Negative) HPF Urine Bacteria (Negative) HPF Urine Casts (Negative) LPF Urine Mucus (Negative) Ur Culture Indicated? Urine Glucose (Negative) mg/dL Range/Units 12/05/22 12/05/22 22:52 23:25 WBC (4.4-10.8) 10^3/uL RBC (3.93-5.22) 10^6/uL Hgb (11.2-15.7) g/dL Hct (36.0-46.0) % MCV (80-95) fL MCH (27.0-33.0) pg MCHC (32.0-36.0) % RDW (11.7-14.6) % Plt Count (130-400) 10^3/uL MPV (8.0-11.0) fL Immature Gran % Neutrophils % Band Neutrophils % Lymphocytes % Monocytes % Eosinophils % Basophils % Nucleated RBC % (0.0-0.3) % Absolute Neutrophils (1.2-6.7) 10^3/uL Absolute Lymphocytes (1.2-3.4) 10^3/uL Absolute Monocytes (0.1-0.8) 10^3/uL Absolute Eosinophils (0.0-0.7) 10^3/uL Absolute Basophils (0.0-0.2) 10^3/uL RBC Morphology Basophilic Stippling VBG Lactate (0.6-1.4) mmol/L 17.0 H* Sodium (136-145) mmol/L Potassium (3.5-5.1) mmol/L Chloride (98-107) mmol/L Carbon Dioxide (21.0-32.0) mmol/L Anion Gap (3-11) mmol/L BUN (7-18) mg/dL Creatinine (0.55-1.02) mg/dL Est GFR (CKD-EPI 2020) (mL/min/1.73m2) Glucose (74-106) mg/dL Calcium (8.5-10.1) mg/dL Total Bilirubin (0.2-1.0) mg/dL AST (15-37) U/L ALT (14-59) U/L Alkaline Phosphatase (46-116) U/L Troponin I (<or=60) ng/L NT-Pro-B Natriuret Pep (<300) pg/mL Total Protein (6.4-8.2) g/dL Albumin (3.4-5.0) g/dL Lipase (16-77) U/L Urine Color (Yellow) Yellow Urine Clarity (Clear) Cloudy Urine pH (5-8) 5.0 Ur Specific [place] (1.005-1.025) >= 1.030 H Urine Protein (Negative) mg/dL 100 H Urine Ketones (Negative) mg/dL Trace H Urine Blood (Negative) Small H Urine Nitrite (Negative) Negative Urine Bilirubin (Negative) Moderate H Urine Urobilinogen (Up to 0.2) mg/dL 4.0 H Ur Leukocyte Esterase (Negative) Negative Urine RBC (0-2) HPF 3-5 H Urine WBC (0-5) HPF 3-5 Ur Epithelial Cells (Negative) HPF Many Urine Crystals (Negative) HPF Negative Urine Bacteria (Negative) HPF Moderate Urine Casts (Negative) LPF >50 Hyaline Urine Mucus (Negative) Negative Ur Culture Indicated? No/Sq. Contamination Urine Glucose (Negative) mg/dL Negative HPI General Mode of arrival: ambulatory. Date/Time Provider Initiated Documentation: 12/05/22 20:39. Limitations to Documentation: no limitations. Information obtained by: patient, family and EMS. HPI Narrative: 77-year-old female with history of recently diagnosed metastatic cancer here with shortness of breath and abdominal pain as well as declining mentation. Patient notes diffuse abdominal pain. Shortness of breath worse with exertion. Biopsy of the liver lesion performed 11/26/2022 positive for high-grade neuroendocrine carcinoma, favor small cell carcinoma. Patient did have additional dosing of oxycodone recently. No fevers noted. Son notes steadily mentation has declined since biopsy. EMS state patient found to be hypoxic in the 80s at home. Nasal cannula oxygen applied and now saturating in the mid to upper 90s. Related Data Home Medications Medication Instructions Recorded Confirmed triamcinolone acetonide 55 mcg 2 spray intranasal DAILY #16.9 mL 07/17/21 12/02/22 nasal spray aerosol (24 Hour Nasal Allergy) fluocinolone 0.025 % topical 1 applic topical BID #60 grams 09/29/21 12/02/22 ointment betamethasone, augmented 0.05 % 1 applic topical BID rash #50 grams 03/16/22 12/02/22 topical ointment alendronate 70 mg tablet 70 mg PO QWEEK #12 tabs 04/09/22 12/02/22 simvastatin 40 mg tablet 40 mg PO QHS #90 tabs 04/23/22 12/02/22 fluoxetine 40 mg capsule 40 mg PO DAILY #90 caps 04/30/22 12/02/22 albuterol sulfate 90 mcg/actuation See Rx Instructions .Route 05/29/22 12/02/22 aerosol inhaler .COMPLEX #18 grams bupropion HCl 300 mg 24 hr tablet, 300 mg PO DAILY #90 tabs 07/04/22 12/02/22 extended release buspirone 15 mg tablet 15 mg PO BID #180 tabs 07/04/22 12/02/22 cetirizine 10 mg tablet 10 mg PO DAILY #90 tabs 07/04/22 12/02/22 hydroxyzine HCl 10 mg tablet 10 mg PO QHS #90 tabs 07/04/22 12/02/22 triamcinolone acetonide 0.1 % 1 applic topical BID #30 grams 09/12/22 12/02/22 topical cream sucralfate 1 gram tablet (Carafate) 1 g PO TID #21 tabs 10/19/22 12/02/22 ondansetron HCl 4 mg tablet 4 mg PO Q6H PRN nausea and 10/27/22 12/02/22 vomiting #60 tabs sennosides 8.6 mg capsule (senna) See Rx Instructions PO DAILY #100 11/06/22 12/02/22 caps naloxone 4 mg/actuation nasal 1 spray intranasal Q2-3M PRN 11/09/22 12/02/22 spray (Narcan) opioid overdose #2 ea omeprazole 40 mg capsule,delayed 40 mg PO DAILY #30 caps 11/30/22 11/30/22 release oxycodone 10 mg tablet See Rx Instructions PO Q6H PRN 12/04/22 pain #70 tabs Previous Rx's Medication Instructions Recorded triamcinolone acetonide 55 mcg 2 spray intranasal DAILY #16.9 mL 07/17/21 nasal spray aerosol (24 Hour Nasal Allergy) fluocinolone 0.025 % topical 1 applic topical BID #60 grams 09/29/21 ointment betamethasone, augmented 0.05 % 1 applic topical BID rash #50 grams 03/16/22 topical ointment alendronate 70 mg tablet 70 mg PO QWEEK #12 tabs 04/09/22 simvastatin 40 mg tablet 40 mg PO QHS #90 tabs 04/23/22 fluoxetine 40 mg capsule 40 mg PO DAILY #90 caps 04/30/22 albuterol sulfate 90 mcg/actuation See Rx Instructions .Route 05/29/22 aerosol inhaler .COMPLEX #18 grams bupropion HCl 300 mg 24 hr tablet, 300 mg PO DAILY #90 tabs 07/04/22 extended release buspirone 15 mg tablet 15 mg PO BID #180 tabs 07/04/22 cetirizine 10 mg tablet 10 mg PO DAILY #90 tabs 07/04/22 hydroxyzine HCl 10 mg tablet 10 mg PO QHS #90 tabs 07/04/22 triamcinolone acetonide 0.1 % 1 applic topical BID #30 grams 09/12/22 topical cream sucralfate 1 gram tablet (Carafate) 1 g PO TID #21 tabs 10/19/22 ondansetron HCl 4 mg tablet 4 mg PO Q6H PRN nausea and 10/27/22 vomiting #60 tabs sennosides 8.6 mg capsule (senna) See Rx Instructions PO DAILY #100 11/06/22 caps naloxone 4 mg/actuation nasal 1 spray intranasal Q2-3M PRN 11/09/22 spray (Narcan) opioid overdose #2 ea omeprazole 40 mg capsule,delayed 40 mg PO DAILY #30 caps 11/30/22 release oxycodone 10 mg tablet See Rx Instructions PO Q6H PRN 12/04/22 pain #70 tabs Allergies Allergy/AdvReac Type Severity Reaction Status Date / Time pollen extracts Allergy Unknown Verified 11/30/22 11:49 ragweed pollen Allergy Unknown Verified 11/30/22 11:49 Sulfa (Sulfonamide AdvReac Intermediate Dizziness/L Verified 11/30/22 11:49 Antibiotics) ightheade erythromycin base AdvReac Mild dizziness Verified 11/30/22 11:49 ibuprofen AdvReac Mild Dizzyness Verified 11/30/22 11:49 General Stated Complaint: RespSymp MAI: 3 Review of Systems Constitutional Constitutional: Denies fever(s) Cardiovascular Cardiovascular: Reports as per HPI, Denies chest pain and Reports dyspnea Respiratory Respiratory: Reports dyspnea Gastrointestinal Gastrointestinal: Reports abdominal pain Neurologic Neurologic: Reports as per HPI PFSH All Active Problems (Updated 12/06/22 @ 00:21 by Deep Montez MD) Metastatic disease (Acute) Lung cancer (Chronic) Acute lactic acidosis (Acute) Elevated troponin (Acute) Acute hyperkalemia (Acute) GENNARO (acute kidney injury) (Acute) Hyperlipidemia (Chronic) Osteoporosis (Chronic) Chronic nasal congestion (Chronic) Memory changes (Chronic) Itching (Chronic) With chronic scratch/picking Advanced directives, counseling/discussion (Acute) Chronic toe pain, right foot (Chronic) Low back pain (Chronic) Dermatitis associated with moisture (Acute) Acid reflux (Chronic) Back pain (Acute) Metastatic cancer (Acute) unknown origin Cancer related pain (Acute) Generalized anxiety disorder (Acute) Abnormal weight loss (Acute) Constipation due to pain medication (Acute) Frequent falls (Acute) Abdominal pain (Acute) Neuroendocrine carcinoma (Acute) Medical History Allergic rhinitis Anemia Anxiety (~09/24/18) Contusion of right elbow COPD (chronic obstructive pulmonary disease) Depressive disorder Disorder of nervous system Herpes zoster Insomnia Nasal lesion Nicotine dependence Palpitations Polyp, nasal, cavity Right Temporomandibular joint disorder (~01/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 Brother No problems noted. Brother , age 70 Asthma Brother No problems noted. Son No problems noted. Maternal Grandfather , age 60 Cancer rectal cancer Maternal Grandmother , age 88 No problems noted. Social History Smoking/Tobacco Use Status: Former Tobacco Use tobacco type: e-cigarettes Quit Date: 06/17/01 Second Hand Exposure: Yes Smoking risk assessment performed?: Yes Alcohol Intake: former Drug use: Never Substance use type: does not use Counseling given: No Counseling provided: none Details: last alcohol 24 years ago Household members: spouse Pets and animals: Yes Pets and animals: cat(s), dog(s) and bird(s) Sexually active: No Do you think of yourself as: straight/heterosexual Current gender identity: female What is your relationship status?: How often do you talk on the phone with friends or family?: three or more times per week How often do you get together with friends or relatives?: decline to answer How often do you attend sabianism or scientology services?: decline to answer Do you belong to any clubs or organized social groups?: decline to answer Panel score (0-1 are the most socially isolated patients): 2 What type of physical activity do you participate in: walking Frequency: 3-4 times per week Camille/Adventism: Tenriism Special camille needs: No Seatbelt use: always Drive intox or ride w/intox motor bus driver: No Do you feel safe at home: Yes Do you feel safe in your relationship?: Yes Exam Const General: cooperative Orientation: alert, awake and confused HENMT Head: atraumatic Mouth: moist mucous membranes Eyes Conjunctivae: normal conjunctivae Sclera: normal sclerae Pupils: PERRL Resp Effort & Inspection: tachypneic Auscultation: clear to auscultation bilaterally, no rales, no rhonchi and no wheezes Cardio Rate: regular rate Rhythm: regular rhythm GI Palpation: soft, not firm, no guarding, no masses, not rigid and tender (diffuse) Skin General skin exam: no rashes or lesions noted Neuro General: patient alert and tone normal Cognition: abnormal cognition Other: 4/5 strength all ext; no facial weakness; speech clear Extrem General: no edema Psych Appearance: grossly normal Course Vital Signs Vital signs: Vital Signs Temperature 34.6 C L 12/05/22 20:35 Pulse 98 H 12/05/22 20:35 Respiratory Rate 28 H 12/05/22 20:35 Blood Pressure 109/68 12/05/22 20:35 Pulse Oximetry 99 12/05/22 20:35 Temperature 34.6 C L 12/05/22 20:35 Temperature Source Temporal Artery Scan 12/05/22 20:35 Pulse 98 H 12/05/22 20:35 Respiratory Rate 28 H 12/05/22 20:35 Respiratory Effort Normal, Non-Labored 12/05/22 21:10 Respiratory Depth Shallow 06/21/23 21:10 Blood Pressure 132/84 12/05/22 22:01 Pulse Oximetry 99 12/05/22 20:35 Oxygen Delivery Method Nasal Cannula 12/05/22 20:35 Oxygen Flow Rate 2 12/05/22 20:35 Lab/Test Results Lab/Test Results: Laboratory Tests Range/Units 12/05/22 12/05/22 12/05/22 21:00 21:00 21:00 WBC (4.4-10.8) 10^3/uL 23.93 H RBC (3.93-5.22) 10^6/uL 5.34 H Hgb (11.2-15.7) g/dL 15.8 H Hct (36.0-46.0) % 50.9 H MCV (80-95) fL 95 MCH (27.0-33.0) pg 29.6 MCHC (32.0-36.0) % 31.0 L RDW (11.7-14.6) % 20.2 H Plt Count (130-400) 10^3/uL 418 H MPV (8.0-11.0) fL 9.4 Immature Gran % 0.0 Neutrophils % 85.0 Band Neutrophils % 1 Lymphocytes % 4.0 Monocytes % 10.0 Eosinophils % 0.0 Basophils % 0.0 Nucleated RBC % (0.0-0.3) % 0.0 Absolute Neutrophils (1.2-6.7) 10^3/uL 20.58 H Absolute Lymphocytes (1.2-3.4) 10^3/uL 0.96 L Absolute Monocytes (0.1-0.8) 10^3/uL 2.39 H Absolute Eosinophils (0.0-0.7) 10^3/uL 0.00 Absolute Basophils (0.0-0.2) 10^3/uL 0.00 RBC Morphology See Below Basophilic Stippling 1+ VBG Lactate (0.6-1.4) mmol/L Sodium (136-145) mmol/L 138 Potassium (3.5-5.1) mmol/L 5.4 H Chloride (98-107) mmol/L 96 L Carbon Dioxide (21.0-32.0) mmol/L 10.5 L Anion Gap (3-11) mmol/L 31.5 H BUN (7-18) mg/dL 45 H Creatinine (0.55-1.02) mg/dL 2.0 H Est GFR (CKD-EPI 2020) (mL/min/1.73m2) 25.10 Glucose (74-106) mg/dL 79 Calcium (8.5-10.1) mg/dL 8.8 Total Bilirubin (0.2-1.0) mg/dL 2.0 H AST (15-37) U/L 2857 H ALT (14-59) U/L 469 H Alkaline Phosphatase (46-116) U/L 996 H Troponin I (<or=60) ng/L 326 H* NT-Pro-B Natriuret Pep (<300) pg/mL 10035 H Total Protein (6.4-8.2) g/dL 6.6 Albumin (3.4-5.0) g/dL 2.3 L Lipase (16-77) U/L 61 Range/Units 12/05/22 22:52 WBC (4.4-10.8) 10^3/uL RBC (3.93-5.22) 10^6/uL Hgb (11.2-15.7) g/dL Hct (36.0-46.0) % MCV (80-95) fL MCH (27.0-33.0) pg MCHC (32.0-36.0) % RDW (11.7-14.6) % Plt Count (130-400) 10^3/uL MPV (8.0-11.0) fL Immature Gran % Neutrophils % Band Neutrophils % Lymphocytes % Monocytes % Eosinophils % Basophils % Nucleated RBC % (0.0-0.3) % Absolute Neutrophils (1.2-6.7) 10^3/uL Absolute Lymphocytes (1.2-3.4) 10^3/uL Absolute Monocytes (0.1-0.8) 10^3/uL Absolute Eosinophils (0.0-0.7) 10^3/uL Absolute Basophils (0.0-0.2) 10^3/uL RBC Morphology Basophilic Stippling VBG Lactate (0.6-1.4) mmol/L 17.0 H* Sodium (136-145) mmol/L Potassium (3.5-5.1) mmol/L Chloride (98-107) mmol/L Carbon Dioxide (21.0-32.0) mmol/L Anion Gap (3-11) mmol/L BUN (7-18) mg/dL Creatinine (0.55-1.02) mg/dL Est GFR (CKD-EPI 2020) (mL/min/1.73m2) Glucose (74-106) mg/dL Calcium (8.5-10.1) mg/dL Total Bilirubin (0.2-1.0) mg/dL AST (15-37) U/L ALT (14-59) U/L Alkaline Phosphatase (46-116) U/L Troponin I (<or=60) ng/L NT-Pro-B Natriuret Pep (<300) pg/mL Total Protein (6.4-8.2) g/dL Albumin (3.4-5.0) g/dL Lipase (16-77) U/L Critical Care Time Critical Care Time Critical Care Time: Yes Total Critical Care Time: 45 Attestation: I spent greater than 45 minutes addressing this patient's immediate life threats. Please see MDM section of note. This time was spent engaged in work directly related to the patient's care, exclusive of separate procedures, and failure to initiate these interventions would have likely resulted in clinically significant or life threatening deterioration in the patient's condition.
[2022-12-05 23:45] LABS: Bilirubin Moderate (Negative); Blood Small (Negative); Clarity Cloudy (Clear); Glucose Negative (Negative); Ketones Trace mg/dL (Negative); Leukocyte Esterase Negative (Negative); Nitrite Negative (Negative); Specific Gravity >= 1.030 (1.005-1.025)
[2022-12-05] MEDS: Lactated Ringers 500 ML 1000 ML IV (23:45)
--- NOTE | 2022-12-05 23:45 | DI.VRAD_ITS ---
PROCEDURE INFORMATION: Exam: CTA Chest With Contrast CTA Abdomen With Contrast Exam date and time: 12/05/2022 10:31 PM Age: 77 years old Clinical indication: Other: Cancer, SOB, abdominal pain, recent liver biopsy TECHNIQUE: Imaging protocol: Computed tomographic angiography of the chest with contrast. Exam focused on the arteries. Computed tomographic angiography of the abdomen with contrast. Exam focused on the arteries. 3D rendering (Not supervised by radiologist): MIP and/or 3D reconstructed images were created by the technologist. Radiation optimization: All CT scans at this facility use at least one of these dose optimization techniques: automated exposure control; mA and/or kV adjustment per patient size (includes targeted exams where dose is matched to clinical indication); or iterative reconstruction. Contrast material: OMNI 350; Contrast volume: 70 ml; Contrast route: INTRAVENOUS (IV); COMPARISON: CT CHEST W 10/26/2022 11:21 AM FINDINGS: VASCULATURE: Pulmonary arteries: The pulmonary arteries are not enlarged. There is no evidence of filling defects within the pulmonary arterial circulation to suggest pulmonary embolism. Aorta: The thoracic aorta shows no evidence of aneurysmal dilatation, dissection or occlusive disease. The thoracic aortic great vessels appear normal. The aorta demonstrates moderate atherosclerotic calcification. Celiac trunk and mesenteric arteries: There is mild atherosclerosis in a mild stenosis present at the origin the celiac artery. There is mild atherosclerosis a mild stenosis at the origin of the superior mesenteric artery. The inferior mesenteric artery is not well visualize. The left colic artery of appears widely patent. The inferior mesenteric artery is likely filled either by collaterals or antegrade. Renal arteries: Single renal artery supplies the left kidney without evidence of flow-limiting stenosis. Single renal artery supplies the right kidney without evidence of flow-limiting stenosis. Right iliac arteries: The right common iliac artery is widely patent without evidence of flow-limiting stenosis. The right internal iliac artery shows mild atherosclerosis no evidence of flow-limiting stenosis. The right external iliac artery shows mild atherosclerosis without evidence of flow-limiting stenosis. Right femoral/popliteal arteries: The right common femoral artery shows moderate atherosclerosis but only 20 30% stenosis. The right proximal superficial femoral deep femoral arteries are widely patent. The right proximal superficial femoral deep femoral arteries are widely patent. Left iliac arteries: The left common iliac artery is widely patent without evidence of flow-limiting stenosis. The left internal iliac artery shows mild atherosclerosis no evidence of flow-limiting stenosis. The left external iliac artery shows mild atherosclerosis without evidence of flow-limiting stenosis. Left femoral/popliteal arteries: The left common femoral artery shows moderate to severe atherosclerosis with approximately 60-70% stenosis. CHEST: Lungs: There is a large right upper lobe, paramediastinal pulmonary mass present. There is extension into the middle and anterior mediastinum. There is at least compression, if not invasion of the superior vena cava. There is encasement of the right upper lobe pulmonary artery. There are multiple bilateral pulmonary nodules consistent with disseminated metastatic disease. There is right hilar, left hilar right bronchial, subcarinal and precarinal adenopathy present. Pleural spaces: No pneumothorax. Small right pleural effusion present. Heart: There is mild left ventricular hypertrophy present. No evidence of reflux of contrast into the inferior vena cava or hepatic veins to suggest right heart strain or pulmonary hypertension. There is a small pericardial effusion present. Coronary arteries: There is mild atherosclerotic calcification of the coronary arteries. ABDOMEN AND PELVIS: Liver: There are diffuse innumerable metastatic lesions within the left and right liver lobes occupying approximately 80% of the volume of the liver. Gallbladder and bile ducts: Unremarkable. No calcified stones. No ductal dilation. Pancreas: There is mild pancreatic atrophy and fatty replacement. Spleen: The spleen is normal. Adrenal glands: 2 cm mass within the left adrenal gland likely representing metastases. Kidneys and ureters: The kidneys are normal. Stomach and bowel: Unremarkable. No obstruction. No mucosal thickening. Intraperitoneal space: Large mass present within the pelvis measuring 2.6 x 2.7 cm image 50 series 13 likely represents metastatic disease to the peritoneum. Similar lesions are present within the right anterior pararenal space image 32 series 13 measuring 9.2 mm in diameter. Moderate amount of free fluid present within the pelvis. Urinary bladder: The bladder is normal. Reproductive: The uterus is normal. Lymph nodes: There is right hilar, left hilar right bronchial, subcarinal and precarinal adenopathy present. Lymphadenopathy present at the diamond hepatis and within the peritoneal cavity. Bones/joints: There are fractures of the posterior 10th and 11th ribs. These were present on the prior study of 11/27/2022. There is a healed fracture of the left posterior 12th rib. New. 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 Moderate degenerative changes of the lumbar spine present. No definitive metastatic disease to the bony structures of the lumbar spine identified. No definitive metastatic disease to the bony structures of thorax identified. Soft tissues: Soft tissue nodule present within the subcutaneous fat image 332 series 16 May represent metastatic disease. Similar lesion present on image 181 series 16 within the right lateral abdominal subcutaneous fat. IMPRESSION: 1. There is a large right upper lobe, paramediastinal pulmonary mass present. There is extension into the middle and anterior mediastinum. There is at least compression, if not invasion of the superior vena cava. There is encasement of the right upper lobe pulmonary artery. 2. There are multiple bilateral pulmonary nodules consistent with disseminated metastatic disease. 3. There is right hilar, left hilar right bronchial, subcarinal and precarinal adenopathy present. Retroperitoneal and peritoneal metastatic adenopathy. Subcutaneous metastatic disease present within the abdomen. 4. There is no evidence of filling defects within the pulmonary arterial circulation to suggest pulmonary embolism. 5. The thoracic aorta shows no evidence of aneurysmal dilatation, dissection or occlusive disease. The thoracic aortic great vessels appear normal. 6. There is a small pericardial effusion present. 7. There are diffuse innumerable metastatic lesions within the left and right liver lobes occupying approximately 80% of the volume of the liver. 8. The left common femoral artery shows moderate to severe atherosclerosis with approximately 60-70% stenosis. Dictated and Authenticated by: Pj Hadley MD. Ordering:JOSE Adame MD
[2022-12-05 23:54] LABS: Bacteria Moderate HPF (Negative); C & S Indicated? No/Sq. Contamination; Crystals Negative HPF (Negative); Epithelial Cells Many HPF (Negative); Mucus Negative (Negative)
[2022-12-06] VITALS (44 sets, daily range): BP systolic 80–132; BP diastolic 22–79; PULSE 75–105; RESP 17–25; TEMP 34.4–36.6; O2SAT 89–99
[2022-12-06] MEDS: PIPERACILLIN/TAZO 4.5 GM in Normal Saline 100 ML IVPB (00:31)
[2022-12-06] MEDS: Lactated Ringers 500 ML 1000 ML IV (00:32)
[2022-12-06 00:38] LABS: Troponin I 295 ng/L (<or=60)
--- NOTE | 2022-12-06 01:35 | HPE_ITS ---
Date of service: 12/06/22 Time of Service: 01:35 Assessment and Plan Assessment and plan (1) Pneumonia: Start date: 12/05/22 Status: Acute Assessment and plan: This is a 77-year-old lady who presents with 1 week rapid deterioration with diffusely metastatic high-grade neuroendocrine tumor with most likely non-small cell lung cancer metastatic to most of the liver and involving extensive aspects of the lung as well as elsewhere. She appears to have obstruction of structures in the lung and will be treated for pneumonia with an elevated WBC but no fever. This may be stopped if patient is not responding and that she appears fairly far along with metabolic acidosis and body shutdown with her cancer. Her son does want her comfortable and this will be done with her treatment of dehydration and pneumonia but also IV morphine with Ativan and Zofran IV for nausea. Patient care has been consulted and may want to have the patient placed on comfort measures only with his son not want to take her home and most likely the patient would within days if treatments were withdrawn and comfort measures only were applied. As stated she is a DNR/DNI at this time which is a new CODE STATUS. Her son, Cachorro is the DPOA. The patient lives at home with he r and this is not an option for end-of-life care. (2) GENNARO (acute kidney injury): Start date: 12/05/22 Status: Acute Assessment and plan: IV hydration with D5 normal saline overnight and reevaluate whether we want to reverse this problem in the morning with palliative care consultation and addressing end-of-life and possible comfort measures only as best treatment plan. (3) Acute hyperkalemia: Start date: 12/05/22 Status: Acute Assessment and plan: Trend lab but this most likely due to self-correct with hydration. If patient goes to [facility] we will not continue to monitor this problem. (4) Elevated troponin: Start date: 12/05/22 Status: Acute Assessment and plan: Most likely secondary to cardiac strain with heavy tumor load in the lung and abdomen. She does have an elevated BNP indicating right heart strain. Trend but more aggressive treatment is not an option at this time with patient being a DNR/DNI with fairly advanced metastatic disease. (5) Lung cancer, primary, with metastasis from lung to other site: Status: Chronic Assessment and plan: Patient has had 6 weeks of symptoms and extensively metastatic disease with limited treatment options at this time. Son did make his mother DNR/DNI and is considering [facility] measures as neck step with patient not to return home. She could within days if aggressive treatment was stopped and she went to [facility]. She does have fairly advanced metabolic acidosis and not eating and drinking well. History of Present Illness History of Present Illness Chief Complaint: Abdominal pain with shortness of breath and altered mental status. Narrative: This is a 77-year-old female patient who has had a 6-week history of 30 pound weight loss and slowly worsening weakness and abdominal discomfort with shortness of breath. 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 She most likely has diffusely metastatic lung cancer. She has worsened over the last week with worsening abdominal discomfort, weakness and now altered mental status. She is not eating and drinking well. She was evaluated in ED and found to be dry with metabolic acidosis and elevated creatinine as well as lactate as well as severe abdominal discomfort with any palpation or movement. She did respond to Dilaudid. She was hypotensive initially and did receive 1.5 L of lactated Ringer's with minimal urine output and stabilize blood pressure. She had elevated troponins which are trending downward but still elevated. She is not having chest pain. She was short of breath but also has extensive lung lesions. She admitted treated for possible pneumonia with an elevated WBC but no fever and being IV hydrated with D5 normal saline because of slight hypoglycemia and extensive liver metastases. She most likely will not reverse some of her abnormal lab with an markedly elevated BNP and lactate initially. I did tell some we may not want to fully reverse her present shutdown of her body with her disease progressing quickly. She is a DNR/DNI at this point after discussion with the son. She may become comfort measures only if her labs are not trending toward improvement or if she has increased symptoms with attempting to hydrate and treat. The son's main goal is to have his mother comfortable and he knows that she is in the process of dying of her extensive metastatic cancer. Review of Systems Narrative: 13 point review of systems otherwise unrevealing or stable. PFSH All Active Problems (Updated 12/06/22 @ 03:11 by Johny Powell) Pneumonia (Acute) Lung cancer, primary, with metastasis from lung to other site (Chronic) Metastatic disease (Acute) Lung cancer (Chronic) Acute lactic acidosis (Acute) Elevated troponin (Acute) Acute hyperkalemia (Acute) GENNARO (acute kidney injury) (Acute) Hyperlipidemia (Chronic) Osteoporosis (Chronic) Chronic nasal congestion (Chronic) Memory changes (Chronic) Itching (Chronic) With chronic scratch/picking Advanced directives, counseling/discussion (Acute) Chronic toe pain, right foot (Chronic) Low back pain (Chronic) Dermatitis associated with moisture (Acute) Acid reflux (Chronic) Back pain (Acute) Metastatic cancer (Acute) unknown origin Cancer related pain (Acute) Generalized anxiety disorder (Acute) Abnormal weight loss (Acute) Constipation due to pain medication (Acute) Frequent falls (Acute) Abdominal pain (Acute) Neuroendocrine carcinoma (Chronic) Medical History Allergic rhinitis Anemia Anxiety (~09/24/18) Contusion of right elbow COPD (chronic obstructive pulmonary disease) Depressive disorder Disorder of nervous system Herpes zoster Insomnia Nasal lesion Nicotine dependence Palpitations Polyp, nasal, cavity Right Temporomandibular joint disorder (~01/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 Brother No problems noted. Brother , age 70 Asthma Brother No problems noted. Son No problems noted. Maternal Grandfather , age 60 Cancer rectal cancer Maternal Grandmother , age 88 No problems noted. Social History Smoking/Tobacco Use Status: Former Tobacco Use tobacco type: e-cigarettes Quit Date: 06/17/01 Second Hand Exposure: Yes Smoking risk assessment performed?: Yes Alcohol Intake: former Drug use: Never Substance use type: does not use Counseling given: No Counseling provided: none Details: last alcohol 24 years ago Household members: spouse Pets and animals: Yes Pets and animals: cat(s), dog(s) and bird(s) Sexually active: No Do you think of yourself as: straight/heterosexual Current gender identity: female What is your relationship status?: How often do you talk on the phone with friends or family?: three or more times per week How often do you get together with friends or relatives?: decline to answer How often do you attend muslim or pentecostalism services?: decline to answer Do you belong to any clubs or organized social groups?: decline to answer Panel score (0-1 are the most socially isolated patients): 2 What type of physical activity do you participate in: walking Frequency: 3-4 times per week Camille/Voodoo: Holiness Special camille needs: No Seatbelt use: always Drive intox or ride w/intox transportation driver: No Do you feel safe at home: Yes Do you feel safe in your relationship?: Yes Meds Allergies and Home Medications Allergies Allergy/AdvReac Type Severity Reaction Status Date / Time pollen extracts Allergy Unknown Verified 12/06/22 00:49 ragweed pollen Allergy Unknown Verified 12/06/22 00:49 Sulfa (Sulfonamide AdvReac Intermediate Dizziness/L Verified 12/06/22 00:49 Antibiotics) ightheade erythromycin base AdvReac Mild dizziness Verified 12/06/22 00:49 ibuprofen AdvReac Mild Dizzyness Verified 12/06/22 00:49 Home Medications Medication Instructions Recorded Confirmed Type triamcinolone acetonide 55 mcg 2 spray intranasal DAILY #16.9 mL 07/17/21 12/06/22 Rx nasal spray aerosol (24 Hour Nasal Allergy) fluocinolone 0.025 % topical 1 applic topical BID #60 grams 09/29/21 12/06/22 Rx ointment betamethasone, augmented 0.05 % 1 applic topical BID rash #50 grams 03/16/22 12/06/22 Rx topical ointment alendronate 70 mg tablet 70 mg PO QWEEK #12 tabs 04/09/22 12/06/22 Rx simvastatin 40 mg tablet 40 mg PO QHS #90 tabs 04/23/22 12/06/22 Rx fluoxetine 40 mg capsule 40 mg PO DAILY #90 caps 04/30/22 12/06/22 Rx albuterol sulfate 90 mcg/actuation See Rx Instructions .Route 05/29/22 12/06/22 Rx aerosol inhaler .COMPLEX #18 grams bupropion HCl 300 mg 24 hr tablet, 300 mg PO DAILY #90 tabs 07/04/22 12/06/22 Rx extended release buspirone 15 mg tablet 15 mg PO BID #180 tabs 07/04/22 12/06/22 Rx cetirizine 10 mg tablet 10 mg PO DAILY #90 tabs 07/04/22 12/06/22 Rx hydroxyzine HCl 10 mg tablet 10 mg PO QHS #90 tabs 07/04/22 12/06/22 Rx triamcinolone acetonide 0.1 % 1 applic topical BID #30 grams 09/12/22 12/06/22 Rx topical cream sucralfate 1 gram tablet (Carafate) 1 g PO TID #21 tabs 10/19/22 12/06/22 Rx ondansetron HCl 4 mg tablet 4 mg PO Q6H PRN nausea and 10/27/22 12/06/22 Rx vomiting #60 tabs sennosides 8.6 mg capsule (senna) See Rx Instructions PO DAILY #100 11/06/22 12/06/22 Rx caps naloxone 4 mg/actuation nasal 1 spray intranasal Q2-3M PRN 11/09/22 12/06/22 Rx spray (Narcan) opioid overdose #2 ea omeprazole 40 mg capsule,delayed 40 mg PO DAILY #30 caps 11/30/22 12/06/22 Rx release oxycodone 10 mg tablet See Rx Instructions PO Q6H PRN 12/04/22 12/06/22 Rx pain #70 tabs Exam Narrative Exam Narrative: General: Patient appears older than stated age. She is in moderate severe distress lying flat in bed guarding her right upper quadrant with her hand over her abdomen. She appears in pain. She is alert and oriented at least to person and place. HEENT: Normocephalic, eyes with pupils equal and reactive to light symmetrically, extraocular movement tact and sclera anicteric. Patient prefers her eyes closed. Oropharynx with dry mucosa and patient edentulous. Neck: Supple without JVD. Back: Kyphotic without CVA tenderness. Lungs: Bronchovesicular breath sounds diffusely with decreased aeration over the right hemithorax and occasional coarse crackle otherwise no focalizing rales or rhonchi. No expiratory wheeze. Breast: Exam deferred Heart: Regular rate and rhythm with no appreciable murmur or gallop. Abdomen: Obese contour, soft of the lower abdomen with hypoactive bowel sounds, guarding to palpation right upper quadrant more than left upper quadrant and epigastrium with no rebound. She is tender to palpation with palpable enlarged liver over the right upper quadrant. Patient is guarding decreases ability to palpate liver edge. Genitalia/rectal: Westbrook catheter in place draining dark urine, exam otherwise deferred. Extremities: Without clubbing, cyanosis or edema. Joints have arthritic changes. Diffuse muscle wasting. Skin: Pale, warm and dry. Neuro: Cranial nerves II through XII grossly intact. No focalizing motor deficits. No tremor. Psych: Flattened affect and depressed mood. No abnormal thought processes. Patient speaks in a soft monotonous tone voice. Remote memory grossly intact, recent memory less intact. Results Imaging Imaging Studies: Exam: CTA Chest With Contrast CTA Abdomen With Contrast Exam date and time: 12/05/2022 10:31 PM Age: 77 years old Clinical indication: Other: Cancer, SOB, abdominal pain, recent liver biopsy COMPARISON: CT CHEST W 10/26/2022 11:21 AM FINDINGS: VASCULATURE: Pulmonary arteries: The pulmonary arteries are not enlarged. There is no evidence of filling defects within the pulmonary arterial circulation to suggest pulmonary embolism. Aorta: The thoracic aorta shows no evidence of aneurysmal dilatation, dissection or occlusive disease. The thoracic aortic great vessels appear normal. The aorta demonstrates moderate atherosclerotic calcification. Celiac trunk and mesenteric arteries: There is mild atherosclerosis in a mild stenosis present at the origin the celiac artery. There is mild atherosclerosis a mild stenosis at the origin of the superior mesenteric artery. The inferior mesenteric artery is not well visualize. The left colic artery of appears widely patent. The inferior mesenteric artery is likely filled either by collaterals or antegrade. Renal arteries: Single renal artery supplies the left kidney without evidence of flow-limiting stenosis. Single renal artery supplies the right kidney without evidence of flow-limiting stenosis. Right iliac arteries: The right common iliac artery is widely patent without evidence of flow-limiting stenosis. The right internal iliac artery shows mild atherosclerosis no evidence of flow-limiting stenosis. The right external iliac artery shows mild atherosclerosis without evidence of flow-limiting stenosis. Right femoral/popliteal arteries: The right common femoral artery shows moderate atherosclerosis but only 20 30% stenosis. The right proximal superficial femoral deep femoral arteries are widely patent. The right proximal superficial femoral deep femoral arteries are widely patent. Left iliac arteries: The left common iliac artery is widely patent without evidence of flow-limiting stenosis. The left internal iliac artery shows mild atherosclerosis no evidence of flow-limiting stenosis. The left external iliac artery shows mild atherosclerosis without evidence of flow-limiting stenosis. Left femoral/popliteal arteries: The left common femoral artery shows moderate to severe atherosclerosis with approximately 60-70% stenosis. CHEST: Lungs: There is a large right upper lobe, paramediastinal pulmonary mass present. There is extension into the middle and anterior mediastinum. There is at least compression, if not invasion of the superior vena cava. There is encasement of the right upper lobe pulmonary artery. There are multiple bilateral pulmonary nodules consistent with disseminated metastatic disease. There is right hilar, left hilar right bronchial, subcarinal and precarinal adenopathy present. Pleural spaces: No pneumothorax.? Small right pleural effusion present. Heart: There is mild left ventricular hypertrophy present. No evidence of reflux of contrast into the inferior vena cava or hepatic veins to suggest right heart strain or pulmonary hypertension. There is a small pericardial effusion present. Coronary arteries: There is mild atherosclerotic calcification of the coronary arteries. ABDOMEN AND PELVIS: Liver: There are diffuse innumerable metastatic lesions within the left and right liver lobes occupying approximately 80% of the volume of the liver. Gallbladder and bile ducts: Unremarkable. No calcified stones. No ductal dilation. Pancreas: There is mild pancreatic atrophy and fatty replacement. Spleen: The spleen is normal. Adrenal glands: 2 cm mass within the left adrenal gland likely representing metastases. Kidneys and ureters: The kidneys are normal. Stomach and bowel: Unremarkable. No obstruction. No mucosal thickening. Intraperitoneal space: Large mass present within the pelvis measuring 2.6 x 2.7 cm image 50 series 13 likely represents metastatic disease to the peritoneum. Similar lesions are present within the right anterior pararenal space image 32 series 13 measuring 9.2 mm in diameter. Moderate amount of free fluid present within the pelvis. Urinary bladder: The bladder is normal. Reproductive: The uterus is normal. Lymph nodes: There is right hilar, left hilar right bronchial, subcarinal and precarinal adenopathy present. Lymphadenopathy present at the diamond hepatis and within the peritoneal cavity. Bones/joints: There are fractures of the posterior 10th and 11th ribs. These were present on the prior study of 11/27/2022. There is a healed fracture of the left posterior 12th rib. New. 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 Moderate degenerative changes of the lumbar spine present. No definitive metastatic disease to the bony structures of the lumbar spine identified. No definitive metastatic disease to the bony structures of thorax identified. Soft tissues: Soft tissue nodule present within the subcutaneous fat image 332 series 16 May represent metastatic disease. Similar lesion present on image 181 series 16 within the right lateral abdominal subcutaneous fat. IMPRESSION: 1. ? There is a large right upper lobe, paramediastinal pulmonary mass present. There is extension into the middle and anterior mediastinum. There is at least compression, if not invasion of the superior vena cava. There is encasement of the right upper lobe pulmonary artery. 2. ? There are multiple bilateral pulmonary nodules consistent with disseminated metastatic disease. 3. ? There is right hilar, left hilar right bronchial, subcarinal and precarinal adenopathy present. Retroperitoneal and peritoneal metastatic adenopathy. Subcutaneous metastatic disease present within the abdomen. 4. ? There is no evidence of filling defects within the pulmonary arterial circulation to suggest pulmonary embolism. 5. ? The thoracic aorta shows no evidence of aneurysmal dilatation, dissection or occlusive disease. The thoracic aortic great vessels appear normal. 6. ? There is a small pericardial effusion present. 7. ? There are diffuse innumerable metastatic lesions within the left and right liver lobes occupying approximately 80% of the volume of the liver. 8. ? The left common femoral artery shows moderate to severe atherosclerosis with approximately 60-70% stenosis. EXAM: ? CT HEAD WO/W Date: 11/30/2022 CLINICAL HISTORY: ? confusion,METASTATIC CA, C79.9,C7A.8. ? COMPARISON:? CT CT HEAD ? FACIAL WO from 11/27/2018 FINDINGS: ?There are no skull fractures nor skull lesions.? There is no significant fluid in the visualized paranasal sinuses. There is no evidence of intracranial hemorrhage, mass effect, or shift of midline structures.? There are no extra-axial fluid collections.? The ventricles are not enlarged or shifted and there is no blood within the ventricular system nor within the basal cisterns.There is abundant bilateral periventricular hypodensity consistent with chronic small vessel disease. There are no ring enhancing lesions in the brain. There is, however, an enhancing dural-based lesion in the left frontal lobe measuring approximately 2.3 by 1.2 cm consistent with probable meningioma.? This slightly indents the adjacent left frontal lobe but without evidence of prominent frontal lobe edema at this level.? No adjacent skull erosion. IMPRESSION: There is an extra-axial enhancing lesion over the left frontal lobe measuring approximately 2.3 x 1.2 cm, probably a meningioma. No ring enhancing intra-axial lesions in the brain. No skull lesions Abundant periventricular white matter chronic small vessel disease. Labs 12/05/22 21:00 12/05/22 21:00 Labs: Laboratory Results - last 24 hr 12/05/22 12/05/22 12/05/22 21:00 21:00 21:00 WBC 23.93 H RBC 5.34 H Hgb 15.8 H Hct 50.9 H MCV 95 MCH 29.6 MCHC 31.0 L RDW 20.2 H Plt Count 418 H MPV 9.4 Immature Gran % 0.0 Neutrophils % 85.0 Band Neutrophils % 1 Lymphocytes % 4.0 Monocytes % 10.0 Eosinophils % 0.0 Basophils % 0.0 Nucleated RBC % 0.0 Absolute Neutrophils 20.58 H Absolute Lymphocytes 0.96 L Absolute Monocytes 2.39 H Absolute Eosinophils 0.00 Absolute Basophils 0.00 RBC Morphology See Below Basophilic Stippling 1+ VBG Lactate Sodium 138 Potassium 5.4 H Chloride 96 L Carbon Dioxide 10.5 L Anion Gap 31.5 H BUN 45 H Creatinine 2.0 H Est GFR (CKD-EPI 2020) 25.10 Glucose 79 Calcium 8.8 Total Bilirubin 2.0 H AST 2857 H ALT 469 H Alkaline Phosphatase 996 H Troponin I 326 H* NT-Pro-B Natriuret Pep 14542 H Total Protein 6.6 Albumin 2.3 L Lipase 61 Urine Color Urine Clarity Urine pH Ur Specific Ponce Urine Protein Urine Ketones Urine Blood Urine Nitrite Urine Bilirubin Urine Urobilinogen Ur Leukocyte Esterase Urine RBC Urine WBC Ur Epithelial Cells Urine Crystals Urine Bacteria Urine Casts Urine Mucus Ur Culture Indicated? Urine Glucose 12/05/22 12/05/22 12/06/22 22:52 23:25 00:08 WBC RBC Hgb Hct MCV MCH MCHC RDW Plt Count MPV Immature Gran % Neutrophils % Band Neutrophils % Lymphocytes % Monocytes % Eosinophils % Basophils % Nucleated RBC % Absolute Neutrophils Absolute Lymphocytes Absolute Monocytes Absolute Eosinophils Absolute Basophils RBC Morphology Basophilic Stippling VBG Lactate 17.0 H* Sodium Potassium Chloride Carbon Dioxide Anion Gap BUN Creatinine Est GFR (CKD-EPI 2020) Glucose Calcium Total Bilirubin AST ALT Alkaline Phosphatase Troponin I 295 H* NT-Pro-B Natriuret Pep Total Protein Albumin Lipase Urine Color Yellow Urine Clarity Cloudy Urine pH 5.0 Ur Specific Ponce >= 1.030 H Urine Protein 100 H Urine Ketones Trace H Urine Blood Small H Urine Nitrite Negative Urine Bilirubin Moderate H Urine Urobilinogen 4.0 H Ur Leukocyte Esterase Negative Urine RBC 3-5 H Urine WBC 3-5 Ur Epithelial Cells Many Urine Crystals Negative Urine Bacteria Moderate Urine Casts >50 Hyaline Urine Mucus Negative Ur Culture Indicated? No/Sq. Contamination Urine Glucose Negative Last Vital Signs Temp 34.6 C L 12/05/22 20:35 Pulse 105 H 12/06/22 01:16 Resp 20 12/06/22 01:20 BP 80/56 L 12/06/22 01:16 Pulse Ox 94 12/06/22 01:16 Time Spent Time spent with Patient: >75 minutes Time was spent: preparing to see the patient(eg.review tests), ordering m edications,tests, procedures, referring, communicating with other health child care education coordinator, indepentently interpreting results, counseling the patient (and son) and care coordination
--- NOTE | 2022-12-06 02:09 | ED.PROG_ITS ---
Date of service: 12/06/22 Time of Service: 02:09 Medical Decision Making Patient was signed out to myself by my colleague Dr. Deep Montez. Please refer to his HPI, physical exam, assessment and plan. At time of signout we are awaiting final room disposition by Dr. Aurea Sy. Dr. Lazaro Balderrama came and assessed the patient and will be sending her to the ICU. Patient otherwise remains at her current clinical status with no worsening. No additional interventions were needed. I have extensively reviewed the treatment plan with the patient. I have addressed all patient concerns at this time. I have also discussed the plan with the admitting physician and they agree with the current assessment and plan and have agreed to assume responsibility for the patient. All parties demonstrate verbal understanding and agreement with our assessment and plan at this time. The documentation in this chart was dictated using [employer] dictation software. Please excuse any dictation errors. Sign Out Sign Out Data: Sign Out Comment: Follow-up discussion with Dr. Powell regarding admission. Last updated by Deep Montez MD at 12/06/22 00:39 Discharge Plan Disposition Patient Disposition: Admit to [facility] Condition: Critical Discharge Details Clinical Impression: Metastatic disease, Lung cancer, Acute lactic acidosis, Elevated troponin, Acute hyperkalemia, GENNARO (acute kidney injury) Primary Care Provider: Lewis Steel ED Provider: Pawan Ashley Home Meds and New Rx's Prescriptions: No Action omeprazole 40 mg capsule,delayed release(DR/EC) 40 mg PO DAILY Qty: 30 3RF bupropion HCl 300 mg tablet extended release 24 hr 300 mg PO DAILY Qty: 90 4RF cetirizine 10 mg tablet 10 mg PO DAILY Qty: 90 3RF Rx Instructions: treatment failure with loratidine hydroxyzine HCl 10 mg tablet 10 mg PO QHS Qty: 90 0RF buspirone 15 mg tablet 15 mg PO BID Qty: 180 0RF triamcinolone acetonide [24 Hour Nasal Allergy] 55 mcg aerosol,spray 2 spray intranasal DAILY Qty: 16.9 2RF Rx Instructions: administer into each nostril sucralfate [Carafate] 1 gram tablet 1 g PO TID Qty: 21 0RF ondansetron HCl 4 mg tablet 4 mg PO Q6H PRN (Reason: nausea and vomiting) Qty: 60 0RF senna 8.6 mg capsule See Rx Instructions PO DAILY Qty: 100 4RF Rx Instructions: 1-2 8.6 mgdaily orally daily; fluocinolone 0.025 % ointment 1 applic topical BID Qty: 60 1RF betamethasone, augmented 0.05 % ointment 1 applic topical BID Qty: 50 1RF alendronate 70 mg tablet 70 mg PO QWEEK Qty: 12 3RF simvastatin 40 mg tablet 40 mg PO QHS Qty: 90 3RF fluoxetine 40 mg capsule 40 mg PO DAILY Qty: 90 3RF albuterol sulfate 90 mcg/actuation HFA aerosol inhaler See Rx Instructions .ROUTE .COMPLEX Qty: 18 1RF Dose Instruction: INHALE TWO PUFFS BY MOUTH EVERY 6 HOURS NEEDED FOR WHEEZING Rx Instructions: INHALE TWO PUFFS BY MOUTH EVERY 6 HOURS NEEDED FOR WHEEZING triamcinolone acetonide 0.1 % cream 1 applic topical BID Qty: 30 0RF Rx Instructions: for no longer than 2 weeks at a time naloxone [Narcan] 4 mg/actuation spray,non-aerosol 1 spray intranasal Q2-3M PRN (Reason: opioid overdose) Qty: 2 4RF Rx Instructions: spray 1 dose into ONE nostril; alternate nostrils w each dose until help arrives oxycodone 10 mg tablet See Rx Instructions PO Q6H MDD 40 mg PRN (Reason: pain) Qty: 70 0RF Rx Instructions: 1/2-1 tab (5-10 mg) orally every 6 hours PRN;
[2022-12-06] MEDS: DEXTROSE 5%-0.9% SALINE 1,000 ML 150 ML IV (03:36)
[2022-12-06] MEDS: MORPHine 4 MG/ML SYR IVP ×4 (03:49→09:44)
[2022-12-06] MEDS: hydrOXYzine HCL 10 MG TAB PO (03:51)
[2022-12-06] MEDS: Heparin 5,000 UNITS/ML VIAL 5000 UNITS SC (05:20)
[2022-12-06] MEDS: PIPERACILLIN/TAZO 2.25 GM in Normal Saline 50 ML IVPB (05:24)
[2022-12-06 05:26] LABS: Bilirubin Moderate (Negative); Blood Moderate (Negative); Clarity Cloudy (Clear); Glucose Negative (Negative); Ketones Trace mg/dL (Negative); Leukocyte Esterase Negative (Negative); Nitrite Negative (Negative); Specific Gravity 1.025 (1.005-1.025)
[2022-12-06 05:39] LABS: Bacteria Moderate HPF (Negative); C & S Indicated? No/Sq. Contamination; Casts 5-10 Hyaline LPF (Negative); Crystals Many Amorphous HPF (Negative); Epithelial Cells Many HPF (Negative); Mucus Negative (Negative)
[2022-12-06 06:50] LABS: HCT 48.1 % (36.0-46.0); HGB 14.9 g/dL (11.2-15.7); MCH 29.4 pg (27.0-33.0); MCV 95 fL (80-95); MPV 9.9 fL (8.0-11.0); Platelet Count 272 10^3/uL (130-400); RBC 5.07 10^6/uL (3.93-5.22); RDW-SD 66.2 fL; WBC 22.57 10^3/uL (4.4-10.8)
[2022-12-06 06:59] LABS: INR 1.8 (0.9-1.1); Prothrombin Time 18.4 sec (9.3-11.0)
[2022-12-06 07:12] LABS: RDW 20.2 % (11.7-14.6)
[2022-12-06 08:55] LABS: Albumin 2.1 g/dL (3.4-5.0); Alkaline Phosphatase 976 U/L (46-116); Anion Gap 27.8 mmol/L (3-11); BUN 54 mg/dL (7-18); Bilirubin, Total 2.5 mg/dL (0.2-1.0); CO2 11.2 mmol/L (21.0-32.0); CREATININE 2.1 mg/dL (0.55-1.02); Calcium 7.9 mg/dL (8.5-10.1); Chloride 99 mmol/L (98-107); Estimated GFR 23.67 (mL/min/1.73m2); Glucose 219 mg/dL (74-106); Magnesium 2.6 mg/dL (1.8-2.4); Sodium 138 mmol/L (136-145); Total Protein 5.8 g/dL (6.4-8.2)
--- NOTE | 2022-12-06 08:55 | INITIAL_ITS ---
Date of service: 12/06/22 Time of Service: 08:55 Care Management Initial Assmt Initial Assessment REASON FOR HOSPITALIZATION:: metastatic lung cancer with pneumonia PREVIOUS FUNCTIONAL STATUS/SOCIAL/FAMILY SUPPORTS:: Zoë lives in [place] with her Gallo. She has a son Cachorro who lives locally and is OA and a daughter Aracelis who lives in [place]. Zoë was diagnosed with widely metastatic cancer, probably lung, about 6 weeks ago. She is rapidly declining and may transition to comfort measures with end of life care at [facility]. CURRENT FUNCTIONAL STATUS:: Zoë transitioned to comfort measure today and was seen by Palliative Care. She was started on a hydromorphone infusion and appeared comfortable. Zoë had family visiting for most of the day and peacefully at 1832. ADVANCE DIRECTIVES:: none on file Has patient been provided with info about the portal/API?: Yes Did the patient sign up for the portal?: Yes CODE STATUS:: DNR/DNI INSURANCE COVERAGE / FINANCIAL ISSUES:: Medicare Financial Assist 100 PRIMARY CARE PHYSICIAN:: Lewis Kim PATIENT/FAMILY EDUCATION NEEDS:: Expectations, limitations, TRANSPORTATION:: to be determined by disposition PLAN:: Zoë had widely metastatic cancer with few treatment options. She was admitted to [facility] and placed on comfort care. A hydromorphone infusion was initiated and she peacefully at 1632. Final arrangements were made with [facility] in [place]. FORMERLY [facility], [facility] All Active Problems (Updated 12/06/22 @ 03:11 by Johny Powell) Pneumonia (Acute) Lung cancer, primary, with metastasis from lung to other site (Chronic) Metastatic disease (Acute) Lung cancer (Chronic) Acute lactic acidosis (Acute) Elevated troponin (Acute) Acute hyperkalemia (Acute) GENNARO (acute kidney injury) (Acute) Hyperlipidemia (Chronic) Osteoporosis (Chronic) Chronic nasal congestion (Chronic) Memory changes (Chronic) Itching (Chronic) With chronic scratch/picking Advanced directives, counseling/discussion (Acute) Chronic toe pain, right foot (Chronic) Low back pain (Chronic) Dermatitis associated with moisture (Acute) Acid reflux (Chronic) Back pain (Acute) Metastatic cancer (Acute) unknown origin Cancer related pain (Acute) Generalized anxiety disorder (Acute) Abnormal weight loss (Acute) Constipation due to pain medication (Acute) Frequent falls (Acute) Abdominal pain (Acute) Neuroendocrine carcinoma (Chronic) Medical History Allergic rhinitis Anemia Anxiety (~09/24/18) Contusion of right elbow COPD (chronic obstructive pulmonary disease) Depressive disorder Disorder of nervous system Herpes zoster Insomnia Nasal lesion Nicotine dependence Palpitations Polyp, nasal, cavity Right Temporomandibular joint disorder (~01/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 Brother No problems noted. Brother , age 70 Asthma Brother No problems noted. Son No problems noted. Maternal Grandfather , age 60 Cancer rectal cancer Maternal Grandmother , age 88 No problems noted. Social History Smoking/Tobacco Use Status: Former Tobacco Use tobacco type: e-cigarettes Quit Date: 06/17/01 Second Hand Exposure: Yes Smoking risk assessment performed?: Yes Alcohol Intake: former Drug use: Never Substance use type: does not use Counseling given: No Counseling provided: none Details: last alcohol 24 years ago Household members: spouse Pets and animals: Yes Pets and animals: cat(s), dog(s) and bird(s) Sexually active: No Do you think of yourself as: straight/heterosexual Current gender identity: female What is your relationship status?: How often do you talk on the phone with friends or family?: three or more times per week How often do you get together with friends or relatives?: decline to answer How often do you attend jehovah's witness or lutheran services?: decline to answer Do you belong to any clubs or organized social groups?: decline to answer Panel score (0-1 are the most socially isolated patients): 2 What type of physical activity do you participate in: walking Frequency: 3-4 times per week Camille/Denominational: Mandaeism Special camille needs: No Seatbelt use: always Drive intox or ride w/intox wood pile driver operator: No Do you feel safe at home: Yes Do you feel safe in your relationship?: Yes
[2022-12-06 08:57] LABS: Potassium 7.1 mmol/L (3.5-5.1); Troponin I 327 ng/L (<or=60)
[2022-12-06 09:07] LABS: ALT 1072 U/L (14-59); AST > 8000 U/L (15-37)
[2022-12-06] MEDS: LORazepam 2 MG/ML VIAL IV/SC ×2 (09:44→11:49)
[2022-12-06] MEDS: Scopolamine 1 MG/3 DAYS PATCH TD (10:10)
[2022-12-06] MEDS: HYDROmorphone 100 MG in Normal Saline 240 ML IV (10:11)
--- NOTE | 2022-12-06 14:14 | W.PALLCONSUL ---
Date of service: 12/06/22 Time of Service: 14:14 History of Present Illness Narrative: Zoë Pennington is a 77-year-old woman with a history of anxiety/depression and chronic pruritus who was diagnosed with widely metastatic cancer of unknown primary about 6 weeks ago. Over the last month she has been undergoing work-up. Had biopsy at [facility] 10 days ago which showed high-grade neuroendocrine carcinoma. I have been following her at the outpatient palliative care clinic starting about 4 weeks ago for help with pain management and goals of care. We had started her on opioids and were adjusting medication. Additionally there seem to be significant component of anxiety. Over the last 2 weeks her symptoms escalated. She had 2 ED visits and 1 PCP visit because of uncontrolled pain. Last night her family brought her to the emergency room and she was admitted for pain control. She was noted to be in multisystem failure with rising creatinine, elevated LFTs and suspected heart failure. After discussion with her family, it was felt that she would not be interested in pursuing palliative chemotherapy, given risk and side effects. Also unlikely to be a candidate given current clinical status. She and family elected to transition to comfort measures only. Family is unable to provide hospice care in their home. CODE STATUS was changed to DNR/DNI, comfort measures only. She is currently receiving IV Dilaudid, lorazepam IV as needed, scopolamine patch for secretions. All of her regular medications have been discontinued. Assessment and Plan Assessment and plan (1) Palliative care encounter: Status: Acute Assessment and plan: Patient seems very comfortable. Seems to be actively dying. Symptoms being well managed. Supportive counseling today with [id number] Hyacinth regarding end-of-life symptoms, treatments, prognosis. Case also discussed with hospitalist, harness cutter, nursing staff, case management. (2) Lung cancer, primary, with metastasis from lung to other site: Status: Chronic (3) End of life care: Status: Acute PFSH All Active Problems (Updated 12/06/22 @ 20:19 by Anat Solano MD) End of life care (Acute) Palliative care encounter (Acute) Pneumonia (Acute) Lung cancer, primary, with metastasis from lung to other site (Chronic) Metastatic disease (Acute) Lung cancer (Chronic) Acute lactic acidosis (Acute) Elevated troponin (Acute) Acute hyperkalemia (Acute) GENNARO (acute kidney injury) (Acute) Hyperlipidemia (Chronic) Osteoporosis (Chronic) Chronic nasal congestion (Chronic) Memory changes (Chronic) Itching (Chronic) With chronic scratch/picking Advanced directives, counseling/discussion (Acute) Chronic toe pain, right foot (Chronic) Low back pain (Chronic) Dermatitis associated with moisture (Acute) Acid reflux (Chronic) Back pain (Acute) Metastatic cancer (Acute) unknown origin Cancer related pain (Acute) Generalized anxiety disorder (Acute) Abnormal weight loss (Acute) Constipation due to pain medication (Acute) Frequent falls (Acute) Abdominal pain (Acute) Neuroendocrine carcinoma (Chronic) Medical History Allergic rhinitis Anemia Anxiety (~09/24/18) Contusion of right elbow COPD (chronic obstructive pulmonary disease) Depressive disorder Disorder of nervous system Herpes zoster Insomnia Nasal lesion Nicotine dependence Palpitations Polyp, nasal, cavity Right Temporomandibular joint disorder (~01/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 Brother No problems noted. Brother , age 70 Asthma Brother No problems noted. Son No problems noted. Maternal Grandfather , age 60 Cancer rectal cancer Maternal Grandmother , age 88 No problems noted. Social History Smoking/Tobacco Use Status: Former Tobacco Use tobacco type: e-cigarettes Quit Date: 06/17/01 Second Hand Exposure: Yes Smoking risk assessment performed?: Yes Alcohol Intake: former Drug use: Never Substance use type: does not use Counseling given: No Counseling provided: none Details: last alcohol 24 years ago Household members: spouse Pets and animals: Yes Pets and animals: cat(s), dog(s) and bird(s) Sexually active: No Do you think of yourself as: straight/heterosexual Current gender identity: female What is your relationship status?: How often do you talk on the phone with friends or family?: three or more times per week How often do you get together with friends or relatives?: decline to answer How often do you attend yazidism or restoration services?: decline to answer Do you belong to any clubs or organized social groups?: decline to answer Panel score (0-1 are the most socially isolated patients): 2 What type of physical activity do you participate in: walking Frequency: 3-4 times per week Camille/Catholic: Jew Special camille needs: No Seatbelt use: always Drive intox or ride w/intox skip load driver: No Do you feel safe at home: Yes Do you feel safe in your relationship?: Yes Exam Narrative Exam Narrative: Patient laying in bed, pale, no respiratory distress with regular respirations. Nonresponsive to voice or touch. There is some cyanosis of her fingertips and toes. Results Last Vital Signs Temp 36.0 C L 12/06/22 07:08 Pulse 77 12/06/22 07:08 Resp 21 12/06/22 07:08 BP 132/75 12/06/22 07:08 Pulse Ox 95 12/06/22 10:06 Labs 12/06/22 06:15 12/06/22 08:25 Labs: Laboratory Results - last 24 hr 12/05/22 12/05/22 12/05/22 21:00 21:00 21:00 WBC 23.93 H RBC 5.34 H Hgb 15.8 H Hct 50.9 H MCV 95 MCH 29.6 MCHC 31.0 L RDW 20.2 H Plt Count 418 H MPV 9.4 Immature Gran % 0.0 Neutrophils % 85.0 Band Neutrophils % 1 Lymphocytes % 4.0 Monocytes % 10.0 Eosinophils % 0.0 Basophils % 0.0 Nucleated RBC % 0.0 Absolute Neutrophils 20.58 H Absolute Lymphocytes 0.96 L Absolute Monocytes 2.39 H Absolute Eosinophils 0.00 Absolute Basophils 0.00 RBC Morphology See Below Basophilic Stippling 1+ PT INR VBG Lactate Sodium 138 Potassium 5.4 H Chloride 96 L Carbon Dioxide 10.5 L Anion Gap 31.5 H BUN 45 H Creatinine 2.0 H Est GFR (CKD-EPI 2020) 25.10 Glucose 79 Calcium 8.8 Magnesium Total Bilirubin 2.0 H AST 2857 H ALT 469 H Alkaline Phosphatase 996 H Troponin I 326 H* NT-Pro-B Natriuret Pep 30267 H Total Protein 6.6 Albumin 2.3 L Lipase 61 Urine Color Urine Clarity Urine pH Ur Specific [place] Urine Protein Urine Ketones Urine Blood Urine Nitrite Urine Bilirubin Urine Urobilinogen Ur Leukocyte Esterase Urine RBC Urine WBC Ur Epithelial Cells Urine Crystals Urine Bacteria Urine Casts Urine Mucus Ur Culture Indicated? Urine Glucose 12/05/22 12/05/22 12/06/22 22:52 23:25 00:08 WBC RBC Hgb Hct MCV MCH MCHC RDW Plt Count MPV Immature Gran % Neutrophils % Band Neutrophils % Lymphocytes % Monocytes % Eosinophils % Basophils % Nucleated RBC % Absolute Neutrophils Absolute Lymphocytes Absolute Monocytes Absolute Eosinophils Absolute Basophils RBC Morphology Basophilic Stippling PT INR VBG Lactate 17.0 H* Sodium Potassium Chloride Carbon Dioxide Anion Gap BUN Creatinine Est GFR (CKD-EPI 2020) Glucose Calcium Magnesium Total Bilirubin AST ALT Alkaline Phosphatase Troponin I 295 H* NT-Pro-B Natriuret Pep Total Protein Albumin Lipase Urine Color Yellow Urine Clarity Cloudy Urine pH 5.0 Ur Specific [place] >= 1.030 H Urine Protein 100 H Urine Ketones Trace H Urine Blood Small H Urine Nitrite Negative Urine Bilirubin Moderate H Urine Urobilinogen 4.0 H Ur Leukocyte Esterase Negative Urine RBC 3-5 H Urine WBC 3-5 Ur Epithelial Cells Many Urine Crystals Negative Urine Bacteria Moderate Urine Casts >50 Hyaline Urine Mucus Negative Ur Culture Indicated? No/Sq. Contamination Urine Glucose Negative 12/06/22 12/06/22 12/06/22 04:50 06:15 06:15 WBC 22.57 H RBC 5.07 Hgb 14.9 Hct 48.1 H MCV 95 MCH 29.4 MCHC 31.0 L RDW 20.2 H Plt Count 272 MPV 9.9 Immature Gran % Neutrophils % Band Neutrophils % Lymphocytes % Monocytes % Eosinophils % Basophils % Nucleated RBC % Absolute Neutrophils Absolute Lymphocytes Absolute Monocytes Absolute Eosinophils Absolute Basophils RBC Morphology Basophilic Stippling PT INR VBG Lactate Sodium Cancelled Potassium Cancelled Chloride Cancelled Carbon Dioxide Cancelled Anion Gap Cancelled BUN Cancelled Creatinine Cancelled Est GFR (CKD-EPI 2020) Cancelled Glucose Cancelled Calcium Cancelled Magnesium Cancelled Total Bilirubin Cancelled AST Cancelled ALT Cancelled Alkaline Phosphatase Cancelled Troponin I Cancelled NT-Pro-B Natriuret Pep Total Protein Cancelled Albumin Cancelled Lipase Urine Color Yellow Urine Clarity Cloudy Urine pH 5.0 Ur Specific [place] 1.025 Urine Protein 100 H Urine Ketones Trace H Urine Blood Moderate H Urine Nitrite Negative Urine Bilirubin Moderate H Urine Urobilinogen 4.0 H Ur Leukocyte Esterase Negative Urine RBC 10-20 H Urine WBC 5-10 Ur Epithelial Cells Many Urine Crystals Many Amorphous Urine Bacteria Moderate Urine Casts 5-10 Hyaline Urine Mucus Negative Ur Culture Indicated? No/Sq. Contamination Urine Glucose Negative 12/06/22 12/06/22 12/06/22 06:15 08:25 10:00 WBC RBC Hgb Hct MCV MCH MCHC RDW Plt Count MPV Immature Gran % Neutrophils % Band Neutrophils % Lymphocytes % Monocytes % Eosinophils % Basophils % Nucleated RBC % Absolute Neutrophils Absolute Lymphocytes Absolute Monocytes Absolute Eosinophils Absolute Basophils RBC Morphology Basophilic Stippling PT 18.4 H INR 1.8 H VBG Lactate Sodium 138 Potassium 7.1 H* D Chloride 99 Carbon Dioxide 11.2 L Anion Gap 27.8 H BUN 54 H Creatinine 2.1 H Est GFR (CKD-EPI 2020) 23.67 Glucose 219 H Calcium 7.9 L Magnesium 2.6 H Total Bilirubin 2.5 H AST > 8000 H ALT 1072 H Alkaline Phosphatase 976 H Troponin I 327 H* Cancelled NT-Pro-B Natriuret Pep Total Protein 5.8 L Albumin 2.1 L Lipase Urine Color Urine Clarity Urine pH Ur Specific [place] Urine Protein Urine Ketones Urine Blood Urine Nitrite Urine Bilirubin Urine Urobilinogen Ur Leukocyte Esterase Urine RBC Urine WBC Ur Epithelial Cells Urine Crystals Urine Bacteria Urine Casts Urine Mucus Ur Culture Indicated? Urine Glucose
--- NOTE | 2022-12-06 16:23 | CHAPLAIN ---
Zoë is a Palliative Care patient who came to the ED yesterday for problems with pain control. Her code status was changed to DNR/DNR. She is now on comfort measures. Many family members have gathered. Her son said he is relieved to have her here where her pain can be controlled. Zoë isn't not responsive. The family requested that I call their rotary rig engine operator, Rev. Tong Weiss who visited and prayed with Zoë and her family. I will continue to visit.
--- NOTE | 2022-12-06 20:16 | W.PM.DDS ---
Date of service: 12/06/22 Time of Service: 20:16 Discharge Plan Disposition Patient Disposition: Discharge Details Reason For Visit: Pneumonia,Lung Cancer Stage IV,GENNARO,Elevated Tropon Admit Date/Time: 12/06/22 01:41 Admit Provider: Johny Powell Attending Provider: Johny Powell Primary Care Provider: Lewis Steel Hospital Course Hospital Course: See summary and H&P. Labs were grossly abnormal with patient end-stage upon admission and not aggressive therapy quickly adapted with SENIOR SOFTWARE PROJECT MANAGER status. Home Meds and New Rx's Prescriptions: No Action omeprazole 40 mg capsule,delayed release(DR/EC) 40 mg PO DAILY Qty: 30 3RF bupropion HCl 300 mg tablet extended release 24 hr 300 mg PO DAILY Qty: 90 4RF cetirizine 10 mg tablet 10 mg PO DAILY Qty: 90 3RF Rx Instructions: treatment failure with loratidine hydroxyzine HCl 10 mg tablet 10 mg PO QHS Qty: 90 0RF buspirone 15 mg tablet 15 mg PO BID Qty: 180 0RF triamcinolone acetonide [24 Hour Nasal Allergy] 55 mcg aerosol,spray 2 spray intranasal DAILY Qty: 16.9 2RF Rx Instructions: administer into each nostril sucralfate [Carafate] 1 gram tablet 1 g PO TID Qty: 21 0RF ondansetron HCl 4 mg tablet 4 mg PO Q6H PRN (Reason: nausea and vomiting) Qty: 60 0RF senna 8.6 mg capsule See Rx Instructions PO DAILY Qty: 100 4RF Rx Instructions: 1-2 8.6 mgdaily orally daily; fluocinolone 0.025 % ointment 1 applic topical BID Qty: 60 1RF betamethasone, augmented 0.05 % ointment 1 applic topical BID Qty: 50 1RF alendronate 70 mg tablet 70 mg PO QWEEK Qty: 12 3RF simvastatin 40 mg tablet 40 mg PO QHS Qty: 90 3RF fluoxetine 40 mg capsule 40 mg PO DAILY Qty: 90 3RF albuterol sulfate 90 mcg/actuation HFA aerosol inhaler See Rx Instructions .ROUTE .COMPLEX Qty: 18 1RF Dose Instruction: INHALE TWO PUFFS BY MOUTH EVERY 6 HOURS NEEDED FOR WHEEZING Rx Instructions: INHALE TWO PUFFS BY MOUTH EVERY 6 HOURS NEEDED FOR WHEEZING triamcinolone acetonide 0.1 % cream 1 applic topical BID Qty: 30 0RF Rx Instructions: for no longer than 2 weeks at a time naloxone [Narcan] 4 mg/actuation spray,non-aerosol 1 spray intranasal Q2-3M PRN (Reason: opioid overdose) Qty: 2 4RF Rx Instructions: spray 1 dose into ONE nostril; alternate nostrils w each dose until help arrives oxycodone 10 mg tablet See Rx Instructions PO Q6H MDD 40 mg PRN (Reason: pain) Qty: 70 0RF Rx Instructions: 1/2-1 tab (5-10 mg) orally every 6 hours PRN; Discharge Data Cause of : Metastatic carcinoma Discharge Sum: Prov Provider Primary care physician: Lewis Arceo Attending physician on admission: Johny Powell Consults: Palliative Care Pronouncing clinician: Johny Powell Discharge Sum: Diag PCOD Cause of : Metastatic carcinoma Contributing Factors (1) Pneumonia: (2) GENNARO (acute kidney injury): (3) Acute hyperkalemia: (4) Elevated troponin: (5) Lung cancer, primary, with metastasis from lung to other site: Discharge Sum: Summary Date and Time Admission Date: 12/06/2305/22/23 01:41 Date of : 12/06/22 Time of : 18:30 Summary Details: This is a 77-year-old lady who was admitted with 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 She was acidotic, and failure and dehydrated with initial resuscitation with antibiotics for possible pneumonia and IV fluids then made to SENIOR SOFTWARE PROJECT MANAGER. Family was at bedside but patient on comfort measures and she was kept comfortable with analgesic infusion at the time of her . She was a DNR/DNI upon admission and then changed to SENIOR SOFTWARE PROJECT MANAGER during the day. Her was expected. Her family did want her comfortable knowing that they were little treatment options for her extensive metastatic cancer and demise over the last 6-week and especially last 1 week. Additional Data Confirmation of as documented by pronouncing clinician: no pulse and no respirations Family: at bedside Attending/PCP notified?: No Attending Physician: Johny Lopez Was code activated?: No Autopsy requested?: No fur examiner notified?: No Organ bank notified?: Yes Advance directives: Yes Hospice patient?: No
== END 2022-12-06 18:32 | disposition expired | DRG 194 ==
LOC: ER 12-06 02:47 → MS 12-06 03:09
PROVIDERS: Student in an Organized Health Care Education/Training Program; Admitting Provider Family Medicine; Emergency Provider Student in an Organized Health Care Education/Training Program; PCP Nurse Practitioner Family; Visit Provider Family Medicine
DX: J18.9 Pneumonia, unspecified organism (principal); C34.90 Malignant neoplasm of unspecified part of unspecified bronchus or lung; N17.9 Acute kidney failure, unspecified; E87.21 Acute metabolic acidosis; C78.7 Secondary malignant neoplasm of liver and intrahepatic bile duct; J44.0 Chronic obstructive pulmonary disease with (acute) lower respiratory infection; E86.0 Dehydration; E87.5 Hyperkalemia; Z66 Do not resuscitate; Z51.5 Encounter for palliative care; I50.810 Right heart failure, unspecified; R74.8 Abnormal levels of other serum enzymes; E78.5 Hyperlipidemia, unspecified; M81.0 Age-related osteoporosis without current pathological fracture; M54.50 Low back pain, unspecified; R41.3 Other amnesia; K21.9 Gastro-esophageal reflux disease without esophagitis; F41.1 Generalized anxiety disorder; G89.3 Neoplasm related pain (acute) (chronic); K59.03 Drug induced constipation; D64.9 Anemia, unspecified; F32.A Depression, unspecified; G47.00 Insomnia, unspecified; Z87.891 Personal history of nicotine dependence
CPT/HCPCS: 36415; 71275; 74177; 80053; 83690; 85027; 93005; 81003; 81015; 83605; 83735; 83880; 84484; 85025; 85610; 93010; 99236; J1170; J1644; J2060; J2270; J2543; J3490; J7042